=== PATIENT | male | born 1960 | race Caucasian/White ===

== ENCOUNTER 2023-09-27 10:13 | Emergency (ER) | payer BC, SELFPAY ==
[2023-09-27 10:16] VITALS: BP 154/73; PULSE 60; RESP 16; TEMP 36.3; O2SAT 98; BMI 26.3
--- NOTE | 2023-09-27 10:59 | EDS_ITS ---
HPI History of Present Illness Chief Complaint: Hypertension Detail of Chief Complaint: Acute on chronic hypertension. Informant: patient and spouse/S.O. Onset/Context/Timing Onset: Weeks Context: Gradual Onset Timing: Intermittent Current Severity: Mild Maximum Severity: Mild Narrative Narrative: 63-year-old male history of hypertension and prostate cancer. In the past he was on lisinopril daily. That medication was changed about a year ago to losartan. He has been in [place] emergency department twice in the last month. They gave him clonidine to use as needed for elevated blood pressure. He had extensive workup done there including CT of his brain which was basically unremarkable. I reviewed his labs on his phone. His BUN and creatinine are normal of around 11 and 1. Patient states he does get anxious and has been watching a lot of news recently. When his blood pressure goes up and he gets a headache he starts worrying about it and his pressure goes higher. agrees and she is present in the room. Prior similar symptoms: Yes Recent Illness/Hospitalization: No ROS ROS ED ROS Narrative Denies recent illness other than headaches. Review of Systems ROS Unobtainable: Denies due to encephalopathy Constitutional Constitutional ED: Denies chills or fever(s) Eyes Eyes: Denies blurry vision ENT ENT ED: Denies ear pain Cardiovascular Cardiovascular: Denies chest pain Respiratory/Chest Respiratory/Chest: Denies cough or dyspnea Gastrointestinal Gastrointestinal: Denies abdominal pain Genitourinary Genitourinary ED: Denies dysuria or hematuria Musculoskeletal Musculoskeletal: Denies arthralgias or back pain Integumentary Denies abscess Neurologic Neurologic: Reports headache(s) Psychiatric Psychiatric: Reports anxiety; Denies depression Endocrine Endocrinology: Denies cold intolerance Hematologic/Lymphatic Hematologic/Lymphatic: Reports none Allergic/Immunologic Allergic/Immunologic ED: Denies mouth swelling, tongue swelling or urticaria EXAM Physical Exam Narrative Exam Narrative: Well-appearing 63-year-old male. Vital signs stable afebrile. Initial blood pressure 154/73. H EENT exam unremarkable. Pupils round reactive light. Extra motions are intact. Neck nontender. No meningismus. Lungs clear to auscultation bilaterally. Heart regular rhythm no murmur. Abdomen soft nontender. Moving all 4 extremities. 5 out of 5 specification manager strength. Dorsi and plantarflexion intact. Neurologically is awake and alert with no focal motor deficits. Exam benign. Lengthy discussion with both patient and his . Const Vital Signs: 09/27/23 10:16 Temperature 97.4 F L Temperature Source Temporal Pulse Rate 60 Respiratory Rate 16 Blood Pressure 154/73 H Blood Pressure Mean 100 Pulse Ox 98 Oxygen Delivery Method Room Air Positive well nourished and well developed; Negative for cachectic, contractures or unkempt General Appearance ED: well developed and NAD; Negative for unkempt, cachectic, contractures, cyanotic, diaphoretic or pallor Nutritional Appearance: Negative for cachectic HEENT Reports moist mucous membranes Negative for trauma or tenderness Eyes PERRL and EOMs intact bilaterally General Eye ED: Negative for pale conjunctiva, scleral icterus or other Neck no lymphadenopathy, supple and no JVD General: Negative for tenderness or other Chest Wall inspection of chest normal and palpation of chest normal Chest: Negative for other Resp normal respiratory effort and clear to auscultation bilaterally Effort and Inspection: Negative for retractions Auscultation: Negative for rales, rhonchi or wheezes Cardio regular rate, regular rhythm, S1 normal heart sound, S2 normal heart sound and no murmurs Palpation: Negative for palpable S3 or palpable S4 Rate: Negative for bradycardia or tachycardic Rhythm: Negative for abnormal rhythm GI normal to inspection, nondistended, normoactive bowel sounds, non-tender, non- distended and no masses Inspection: Negative for abdominal distention Auscultation: normoactive bowel sounds Palpation: soft; Negative for tender or guarding Back/Spine no CVA tenderness General Back: Negative for CVA tenderness Cervical Spine: Negative for cervical spine tenderness Thoracic Spine / Upper Back: Negative for thoracic spinal tenderness or paraspinal muscle tenderness Lumbar Spine / Lower Back: Negative for lumbar spinal tenderness Extremity normal to inspection General Extremety ED: Negative for edema or tenderness General Extremity: Negative for edema Neuro oriented x3 and CN's II-XII intact bilaterally Sensorium / Orientation: alert; Negative for orientation impaired, lethargic or stuporous Motor Exam: strength 5/5 throughout; Negative for general weakness or strength abnormal Psych mental status grossly normal Appearance: Negative for unkempt Attitude: No agitated Mood & Affect: anxious; Negative for depressed or tearful Skin no rashes or lesions noted, no wounds and skin turgor normal General Skin Exam: elasticity normal; Negative for jaundice or pallor Lesions: No lesion noted Rashes: No rashes noted Trauma: Negative for abrasion Wounds: Negative for wounds noted MDM MDM MDM Narrative Medical decision making narrative: 63-year-old male with acute on chronic hypertension. He was previously on lisinopril now is on losartan. [place] emergency department added as needed clonidine. His exam today is normal. His blood pressure is 154/73. I reviewed his most recent labs and CAT scan from the other facility. He does not need any further testing today. I think a good part of this is secondary to his anxiety. We talked about ways to manage that. He may choose to go back to his lisinopril which he believes was controlling his blood pressure better. He will log his blood pressures and follow-up with primary care physician. Discharge Plan Triage Chief Complaint: Hypertension ED Provider: Tj Lerner Dx/Rx/DC Orders Clinical Impression: Anxiety, Chronic hypertension Instructions: ED Anxiety Reaction, ED High Blood Pressure Hypertension Primary Care Provider: NOT,DEFINED Referrals: NOT,DEFINED [Primary Care Provider] - Activity Restrictions/Additional Instructions: You may want to strongly consider going back to your prior lisinopril prescription. I would take it 1 to 2 hours prior to going to bed at night. Log your blood pressure once in the morning when you are calm and relaxed in the same in the evening. Take those numbers to either your current primary care physician or the new physician you can start with in October so they can adjust or deal with your blood pressure medication according to the numbers. If you restart the lisinopril stop your current blood pressure medication the losartan. I reviewed your recent labs from [place] is look good. For the anxiety component consider things such as walking, exercise, reading or meditation to help you with the anxiety which also help control your blood pressure better. Disposition Disposition: Home, Self Care
[2023-09-27 11:04] VITALS: BP 148/77; PULSE 82; RESP 16; O2SAT 98
--- OUTSIDE RECORDS SUMMARY | 2023-09-27 11:12 | XMS RPT_ITS | CCD ---
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 Work Phone: [facility] 11-28-2022 11:20-0400 Body mass index (BMI) [Ratio] 26.82 kg/m2 Kari Hartmann MD Work Phone: [facility] 11-28-2022 11:20-0400 Body temperature 98.1 [degF] Kari Hartmann MD Work Phone: [facility] 11-28-2022 11:20-0400 Body weight 82.37 kg Kari Hartmann MD Work Phone: [facility] 11-28-2022 11:20-0400 Diastolic blood pressure 91 mm[Hg] Kari Hartmann MD Work Phone: [facility] 11-28-2022 11:20-0400 Heart rate 60 /min Kari Hartmann MD Work Phone: [facility] 03-30-2023 11:20-0400 SaO2% (BldA) [Mass fraction] 95 % Kari Hartmann MD Work Phone: [facility] 11-28-2022 11:20-0400 Systolic blood pressure 138 mm[Hg] Kari Hartmann MD Work Phone: [facility] 09-05-2022 10:44-0500 Body height 175.3 cm Chilango Morales Jr., MD Work Phone: [facility] 09-05-2022 10:44-0500 Body mass index (BMI) [Ratio] 27.42 kg/m2 Chilango Morales Jr., MD Work Phone: [facility] 09-05-2022 10:44-0500 Body temperature 97.9 [degF] Chilango Morales Jr., MD Work Phone: [facility] 09-05-2022 10:44-0500 Body weight 84.23 kg Chilango Morales Jr., MD Work Phone: [facility] 09-05-2022 10:44-0500 Diastolic blood pressure 93 mm[Hg] Chilango Morales Jr., MD Work Phone: [facility] 09-05-2022 10:44-0500 Heart rate 80 /min Chilango Morales Jr., MD Work Phone: [facility] 09-05-2022 10:44-0500 SaO2% (BldA) [Mass fraction] 95 % Chilango Morales Jr., MD Work Phone: [facility] 09-05-2022 10:44-0500 Systolic blood pressure 154 mm[Hg] Chilango Morales Jr., MD Work Phone: [facility] 07-05-2022 10:48-0400 Diastolic blood pressure 105 mm[Hg] Gume Watts MD Work Phone: [facility] 07-05-2022 10:48-0400 Systolic blood pressure 185 mm[Hg] Gume Watts MD Work Phone: [facility] 07-05-2022 10:46-0400 Body height 175.3 cm Gume Watts MD Work Phone: [facility] 07-05-2022 10:46-0400 Body mass index (BMI) [Ratio] 27.17 kg/m2 Gume Watts MD Work Phone: [facility] 07-05-2022 10:46-0400 Body weight 83.46 kg Gume Watts MD Work Phone: [facility] 07-05-2022 10:46-0400 Heart rate 71 /min Gume Watts MD Work Phone: [facility] 06-06-2022 11:28-0400 Body height 175.3 cm Kari Hartmann MD Work Phone: [facility] 06-06-2022 11:28-0400 Body mass index (BMI) [Ratio] 26.46 kg/m2 Kari Hartmann MD Work Phone: [facility] 06-06-2022 11:28-0400 Body temperature 97.81 [degF] Kari Hartmann MD Work Phone: [facility] 06-06-2022 11:28-0400 Body weight 81.28 kg Kari Hartmann MD Work Phone: [facility] 06-06-2022 11:28-0400 Diastolic blood pressure 84 mm[Hg] Kari Hartmann MD Work Phone: [facility] 06-06-2022 11:28-0400 Heart rate 77 /min Kari Hartmann MD Work Phone: [facility] 06-06-2022 11:28-0400 SaO2% (BldA) [Mass fraction] 95 % Kari Hartmann MD Work Phone: [facility] 06-06-2022 11:28-0400 Systolic blood pressure 161 mm[Hg] Kari Hartmann MD Work Phone: [facility] 2022 14:05-0400 Diastolic blood pressure 96 mm[Hg] Gume Watts MD Work Phone: [facility] 2022 14:05-0400 Systolic blood pressure 182 mm[Hg] Gume Watts MD Work Phone: [facility] 2022 14:01-0400 Body height 165.1 cm Gume Watts MD Work Phone: [facility] 2022 14:01-0400 Body mass index (BMI) [Ratio] 28.79 kg/m2 Gume Watts MD Work Phone: [facility] 2022 14:01-0400 Body weight 78.47 kg Gume Watts MD Work Phone: [facility] 2022 14:01-0400 Heart rate 78 /min Gume Watts MD Work Phone: [facility] 12-24-2021 10:32-0400 Body height 165.1 cm Kari Hartmann MD Work Phone: [facility] 12-24-2021 10:32-0400 Body mass index (BMI) [Ratio] 28.54 kg/m2 Kari Hartmann MD Work Phone: [facility] 12-24-2021 10:32-0400 Body temperature 98.29 [degF] Kari Hartmann MD Work Phone: [facility] 12-24-2021 10:32-0400 Body weight 77.79 kg Kari Hartmann MD Work Phone: [facility] 12-24-2021 10:32-0400 Diastolic blood pressure 97 mm[Hg] Kari Hartmann MD Work Phone: [facility] 12-24-2021 10:32-0400 Heart rate 67 /min Kari Hartmann MD Work Phone: [facility] 12-24-2021 10:32-0400 SaO2% (BldA) [Mass fraction] 96 % Kari Hartmann MD Work Phone: [facility] 12-24-2021 10:32-0400 Systolic blood pressure 177 mm[Hg] Kari Hartmann MD Work Phone: [facility] 11-22-2021 09:46-0400 Body height 170.18 cm Caren Reyes Work Phone: WB-Qsisuru-Dpyfoxm Work Phone: 11-22-2021 09:46-0400 Body mass index (BMI) [Ratio] 27.12 kg/m2 Caren Reyes Work Phone: XH-Xtgmqob-Knjlmcs Work Phone: 11-22-2021 09:46-0400 Body surface area Derived from formula 1.9 m2 Caren Reyes Work Phone: GX-Uzcggdn-Mlzezjp Work Phone: 11-22-2021 09:46-0400 Body weight 78.53 kg Caren Reyes Work Phone: FN-Fxzqmwp-Iesqetm Work Phone: 11-22-2021 09:46-0400 Diastolic blood pressure 100 mm[Hg] Caren Reyes Work Phone: HP-Oucmvfp-Cdzsnzs Work Phone: 11-22-2021 09:46-0400 Heart rate 72 /min Caren Reyes Work Phone: PR-Wcddiwl-Hjcktuw Work Phone: 11-22-2021 09:46-0400 Systolic blood pressure 176 mm[Hg] Caren Reyes Work Phone: JP-Onvemvm-Rtzbmhp Work Phone: 11-15-2021 08:36-0400 Diastolic blood pressure 86 mm[Hg] Foster Michelle MD Work Phone: [facility] 11-15-2021 08:36-0400 Heart rate 89 /min Foster Michelle MD Work Phone: [facility] 11-15-2021 08:36-0400 SaO2% (BldA) [Mass fraction] 96 % Foster Michelle MD Work Phone: [facility] 11-15-2021 08:36-0400 Systolic blood pressure 148 mm[Hg] Foster Michelle MD Work Phone: [facility] 10-25-2021 14:31-0500 Body height 171 cm Caren Reyes Work Phone: WE-Kssfgat-Zkhbrro Work Phone: 10-25-2021 14:31-0500 Body mass index (BMI) [Ratio] 26.69 kg/m2 Caren Reyes Work Phone: KV-Mmnbwvl-Axodbwk Work Phone: 10-25-2021 14:31-0500 Body surface area Derived from formula 1.9 m2 Caren Reyes Work Phone: LX-Gaysavv-Msddxmd Work Phone: 10-25-2021 14:31-0500 Body weight 78.04 kg Caren Reyes Work Phone: IH-Lklzajp-Xjmyjnt Work Phone: 10-25-2021 14:31-0500 Diastolic blood pressure 87 mm[Hg] Caren Reyes Work Phone: IY-Lrrjses-Dtkrzlk Work Phone: 10-25-2021 14:31-0500 Heart rate 68 /min Caren Reyes Work Phone: QK-Phiovcp-Lkzdhuf Work Phone: 10-25-2021 14:31-0500 Systolic blood pressure 181 mm[Hg] Caren Abrams BiancaMedghazala Work Phone: LG-Xjvhgvl-Mdsrgeo Work Phone: 10-02-2021 08:49-0500 Body mass index (BMI) [Ratio] 25.4 kg/m2 Kimi Brar MD Work Phone: [facility] 10-02-2021 08:49-0500 Body weight 78.02 kg Kimi Brar MD Work Phone: [facility] 10-02-2021 08:49-0500 Diastolic blood pressure 85 mm[Hg] Kimi Brar MD Work Phone: [facility] 10-02-2021 08:49-0500 Heart rate 76 /min Kimi Brar MD Work Phone: [facility] 10-02-2021 08:49-0500 Systolic blood pressure 147 mm[Hg] Kimi Brar MD Work Phone: [facility] 12-20-2020 12:11-0400 Diastolic blood pressure 75 mm[Hg] Sameera Coreas MD Work Phone: [facility] 12-20-2020 12:11-0400 Heart rate 68 /min Sameera Coreas MD Work Phone: [facility] 12-20-2020 12:11-0400 SaO2% (BldA) [Mass fraction] 94 % Sameera Coreas MD Work Phone: [facility] 12-20-2020 12:11-0400 Systolic blood pressure 168 mm[Hg] Sameera Coreas MD Work Phone: [facility] 12-20-2020 11:50-0400 Respiratory rate 16 /min Sameera Coreas MD Work Phone: [facility] 12-20-2020 11:30-0400 Body temperature 98.29 [degF] Sameera Coreas MD Work Phone: [facility] 12-20-2020 07:30-0400 Body height 175.3 cm Sameera Coreas MD Work Phone: [facility] 12-20-2020 07:30-0400 Body mass index (BMI) [Ratio] 24.19 kg/m2 Sameera Coreas MD Work Phone: [facility] 12-20-2020 07:30-0400 Body weight 74.3 kg Sameera Coreas MD Work Phone: [facility] 12-14-2020 08:26-0400 BMI (Body Mass Index) 24.37 kg/m2 Sameera Coreas [facility] 12-14-2020 08:26-0400 Body weight 74.84 kg Sameera Coreas [facility] 12-14-2020 08:26-0400 BP Diastolic 91 mm[Hg] Sameera Coreas [facility] 12-14-2020 08:26-0400 BP Systolic 152 mm[Hg] Sameera Coreas [facility] 12-14-2020 08:26-0400 Height 175.3 cm Sameera Coreas [facility] 12-14-2020 08:26-0400 Pulse (Heart Rate) 67 /min Sameera Coreas [facility] 11-09-2020 10:11-0500 BMI (Body Mass Index) 25.1 kg/m2 freddie Rangel [facility] 11-09-2020 10:11-0500 Body Temperature 98.1 [degF] Painter Juan Carlos [facility] 11-09-2020 10:11-0500 Body weight 77.11 kg [facility] 11-09-2020 10:11-0500 BP Diastolic 71 mm[Hg] Painter Juan Carlos [facility] 11-09-2020 10:11-0500 BP Systolic 173 mm[Hg] [facility] 11-09-2020 10:11-0500 Height 175.3 cm [facility] 11-09-2020 10:11-0500 Pulse (Heart Rate) 72 /min [facility] 11-09-2020 10:11-0500 Pulse Oximetry 98 % [facility] 11-09-2020 10:11-0500 Respiratory Rate 16 /min [facility] 10-04-2020 09:57-0500 BMI (Body Mass Index) 25.85 kg/m2 Jess Milner [facility] 10-04-2020 09:57-0500 Body weight 77.11 kg Jess Alf [facility] 10-04-2020 09:57-0500 BP Diastolic 88 mm[Hg] Jess Alf [facility] 10-04-2020 09:57-0500 BP Systolic 164 mm[Hg] Jess Alf [facility] 10-04-2020 09:57-0500 Height 172.7 cm Jess Alf [facility] 10-04-2020 09:57-0500 Pulse (Heart Rate) 66 /min Jessjason Milner [facility] 04-27-2020 07:32-0400 BMI (Body Mass Index) 22.89 kg/m2 Sameera Coreas [facility] 04-27-2020 07:32-0400 Body weight 70.31 kg Sameera Coreas [facility] 04-27-2020 07:32-0400 Height 175.3 cm Sameera Coreas [facility] 10-22-2019 16:19-0500 Body mass index (BMI) [Ratio] Sameera Coreas [facility] 10-22-2019 16:19-0500 Body mass index (BMI) [Ratio] Sameera Coreas [facility] 10-22-2019 15:33-0500 Body Temperature 97.81 [degF] Sameera Coreas [facility] 10-22-2019 15:33-0500 BP Diastolic 83 mm[Hg] Sameera Coreas [facility] 10-22-2019 15:33-0500 BP Systolic 151 mm[Hg] [facility] 10-22-2019 15:33-0500 Pulse Oximetry 95 % Sameera Coreas [facility] 10-22-2019 15:33-0500 Respiratory Rate 16 /min Sameera Pop [facility] 10-22-2019 15:01-0500 Pulse (Heart Rate) 59 /min Sameera Coreas [facility] 10-22-2019 08:58-0500 BMI (Body Mass Index) 23.57 kg/m2 Sameera Coreas [facility] 10-22-2019 08:58-0500 Body weight 72.4 kg Sameera Coreas [facility] 10-22-2019 08:58-0500 Height 175.3 cm Sameera Coreas [facility] 09-14-2019 09:21-0500 BMI (Body Mass Index) 23.33 kg/m2 [facility] 09-14-2019 09:21-0500 Body weight 71.67 kg [facility] 09-14-2019 09:21-0500 Height 175.3 cm [facility] 01-15-2019 05:20-0400 BMI (Body Mass Index) 23.63 kg/m2 [facility] 01-15-2019 05:20-0400 Body Temperature 98.1 [degF] [facility] 01-15-2019 05:20-0400 BP Diastolic 73 mm[Hg] [facility] 01-15-2019 05:20-0400 BP Systolic 141 mm[Hg] [facility] 01-15-2019 05:20-0400 Height 175.3 cm [facility] 01-15-2019 05:20-0400 Pulse (Heart Rate) 66 /min [facility] 01-15-2019 05:20-0400 Pulse Oximetry 96 % [facility] 01-15-2019 05:20-0400 Respiratory Rate 18 /min [facility] 01-15-2019 05:20-0400 Weight 72.58 kg [facility] 01-12-2018 11:20-0400 BMI (Body Mass Index) 22.15 kg/m2 [facility] 01-12-2018 11:20-0400 Body Temperature 97.9 [degF] [facility] 01-12-2018 11:20-0400 BP Diastolic 80 mm[Hg] [facility] 01-12-2018 11:20-0400 BP Systolic 147 mm[Hg] [facility] 01-12-2018 11:20-0400 Height 175.3 cm [facility] 01-12-2018 11:20-0400 Pulse (Heart Rate) 75 /min [facility] 01-12-2018 11:20-0400 Respiratory Rate 16 /min [facility] 01-12-2018 11:20-0400 Weight 68.04 kg [facility] 11-03-2017 08:57-0500 BMI (Body Mass Index) 22.15 kg/m2 [facility] 11-03-2017 08:57-0500 Body Temperature 97.5 [degF] [facility] 11-03-2017 08:57-0500 BP Diastolic 92 mm[Hg] [facility] 11-03-2017 08:57-0500 BP Systolic 128 mm[Hg] [facility] 11-03-2017 08:57-0500 Height 175.3 cm [facility] 11-03-2017 08:57-0500 Pulse (Heart Rate) 74 /min [facility] 11-03-2017 08:57-0500 Weight 68.04 kg [facility] Encounters Encounter Date Encounter Type Care Provider Facility Start: 09-25-2023 End: 09-25-2023 Emergency department patient visit JYOTHI KIRAN [facility] Start: 09-22-2023 End: 09-22-2023 Emergency department patient visit CAREN REYES [facility] Start: 09-22-2023 End: 09-[facility] Start: 09-22-2023 End: 09-22-2023 Office outpatient new 45 minutes Abram Hernandez DO Work Phone: [facility] [place] Procedures Date Procedure Procedure Detail Performing Clinician Start: 09-05-2023 Comprehensive metabo lic panel Tayler Toledo MD Work Phone: Start: 06-18-2023 Radex spine lumbosac ral minimum 4 views Laury Bennett PAC Work Phone: Start: 06-13-2023 Assay of testosterone total Joni Mercado MD Work Phone: Start: 07-05-2022 Ecg routine ecg w/le ast 12 lds w/i&r Gume Watts MD Work Phone: Start: 2022 Assay of thyroid stimulating hormone tsh Gume Watts MD Work Phone: Start: 11-15-2021 Urnls dip stick/tabl et rgnt auto w/o microscopy Foster Michelle MD Work Phone: Start: 11-09-2020 Procedure on wound [address] Lexa Rangel Work Phone: Start: 10-22-2019 Radex clavicle complete Sameera Coreas Work Phone: Start: 09-27-2019 Mri any jt lower ext rem w/o contrast matrl Monique Triplett Work Phone: Start: 03-17-2019 Adult depression scr eening assessment Monique Triplett Start: 01-15-2019 Radex shoulder compl ete minimum 2 views Leeanna Wadsworth Work Phone: Colonoscopy Caren Reyes Work Phone: Operative procedure on knee Caren Reyes Work Phone: Procedure on back Caren Horta Work Phone: Prostatectomy Caren Reyes Work Phone: Repair of shoulder Caren solis Work Phone: Plan of Treatment Date Care Activity Detail Author Start: 11-09-2030 Tetanus vaccination [facility] Start: 09-05-2025 Prostate specific antigen measurement PSA Level [facility] Start: 06-06-2025 Prostate specific antigen measurement PSA Level [facility] Start: 02-10-2025 Prostate specific antigen measurement PSA Level [facility] Start: 11-18-2024 Prostate specific antigen measurement PSA Level [facility] Start: 08-29-2024 Prostate specific antigen measurement PSA Level [facility] Start: 06-03-2024 Prostate specific antigen measurement PSA Level [facility] Start: 02-22-2024 Prostate specific antigen measurement PSA Level [facility] Start: 02-20-2024 End: 02-20-2024 Patient encounter procedure 02/20/2024 8:00 AM EDT Infusion/Injection [facility]fusion [address] [phone] Joni Mercado MD [address] [facility] [address] [place] [phone] [facility] Infusion [facility] Start: 01-17-2024 History and physical examination, annual for health maintenance Wellness Visit [facility] Start: 12-25-2023 Prostate specific antigen measurement PSA Level [facility] Start: 12-08-2023 End: 12-08-2023 Patient encounter procedure 12/08/2023 1:00 PM EDT Office Visit [facility] [address] [place] [id number] Tayler Toledo MD [address] [place] [id number] [facility] Start: 12-03-2023 End: 12-03-2023 Patient encounter procedure 12/03/2023 10:15 AM EDT Office Visit [facility] [address] [place] [address] [place] [phone] Adly, Gume Dunaway MD [facility] [place] [address] [facility] Start: 12-01-2023 End: 09-03-2024 Thyrotropin [Units/volume] in Serum or Plasma TSH Lab Routine Subclinical hyperthyroidism Expected: 12/01/2023, Expires: 09/03/2024 [facility] Work Phone: Immunizations Immunization Date Immunization Notes Care Provider Fa [facility] 06-25-2023 INFLUENZA IIV4 FLUAD [id number] Gume Watts MD Work Phone: [facility] 05-27-2022 influenza, injectabl e, quadrivalent, preservative free Sadie Ballesteros RN [facility] 05-27-2022 influenza virus vaccine, unspecified formulation Daljit Bloom MD Work Phone: [facility] 07-31-2021 Influenza, injectabl e, Madin Nevaeh Canine Kidney, preservative free, quadrivalent Genet Castañeda [facility] Work Phone: [facility] 07-31-2021 Pfizer SARS-CoV-2 Vaccination Genet Garry [facility] Work Phone: [facility] 07-31-2021 flu vac qs 2020,6 ms up,CD,PF, (FLUCELVAX QUAD) syringe Genet Garry [facility] Work Phone: [facility] Work Phone: 11-29-2020 Pfizer SARS-CoV-2 Vaccination Concepción Montes [facility] 11-09-2020 tetanus toxoid, reduced diphtheria toxoid, and acellular pertussis vaccine, adsorbed Jesu Rangel [facility] 11-09-2020 diphtheria, tetanus toxoids and acellular pertussis vaccine, unspecified formulation Jesu Rangel [facility] 11-07-2020 Pfizer SARS-CoV-2 Vaccination Genet Garry [facility] Work Phone: 05-23-2020 influenza, injectabl e, quadrivalent, preservative free Jess Milner [facility] Payers Date Payer Category Payer Unknown 2015 Medicare [id number] 2015 Medicare MITESH ARLYN Newman EDADELINEROSALES MITESH KENIA ACCESS/ENHANCED/CORE PPO/RPPO [id number] 2015-Present [id number] 2015 Medicare [id number] 2015 Medicare [id number] 1958 Unknown [id number] 2.16.840.1.341000.3.579.2.9 00 1958 Unknown [id number] 2.840.1.972670.3.579.2.9 00 1958 Unknown [id number] 2.840.1.368506.3.579.2.1 069 1958 Unknown [id number] 2.16.840.1.897128.3.579.2.9 03 1958 Unknown [id number] 2.840.1.662209.3.579.2.9 03 1958 Unknown [id number] 2.840.1.686591.3.579.2.5 94 1958 Unknown [id number] 2.16.840.1.652351.3.579.2.5 94 1958 Unknown [id number] 2.16.840.1.476866.3.579.2.5 94 1958 Unknown [id number] 2.16.840.1.017017.3.579.2.5 94 1958 Unknown [id number] 2.16.840.1.636656.3.579.2.9 03 1958 Unknown [id number] 2.16.840.1.703620.3.579.2.9 03 1958 Unknown [id number] 2.16.840.1.126928.3.579.2.9 03 1958 Unknown [id number] 2.16.840.1.448755.3.579.2.9 03 1958 Unknown [id number] 2.16.840.1.407236.3.579.2.9 03 1958 Unknown [id number] 2.16.840.1.664756.3.579.2.9 03 1958 Unknown [id number] 2.16840.1.529276.3.579.2.9 03 1958 Unknown [id number] 2.840.1.682728.3.579.2.9 03 1958 Unknown [id number] 2.16840.1.461031.3.579.2.9 03 1958 Unknown [id number] 2.840.1.790073.3.579.2.9 03 1958 Unknown [id number] 2.16840.1.636649.3.579.2.9 03 1958 Unknown [id number] 2.840.1.548012.3.579.2.9 03 1958 Unknown [id number] 2.16840.1.901026.3.579.2.9 03 1958 Unknown [id number] 2.16.840.1.799130.3.579.2.9 03 1958 Unknown [id number] 2.16.840.1.520492.3.579.2.9 03 1958 Unknown [id number] 2.16.840.1.102735.3.579.2.9 03 1960 Unknown [id number] 2.16.840.1.668416.3.579.2.9 02 1960 Unknown [id number] 2.16.840.1.523044.3.579.2.9 02 1960 Unknown [id number] 2.16.840.1.826211.3.579.2.9 02 1960 Unknown [id number] 2.16.840.1.057173.3.579.2.9 02 1960 Unknown [id number] 2.16.840.1.312357.3.579.2.9 02 1958 Unknown [id number] 2.840.1.748014.3.579.2.9 02 1960 Unknown [id number] 2.840.1.912342.3.579.2.9 03 1960 Unknown [id number] 2.840.1.426203.3.579.2.9 03 1960 Unknown [id number] 2.840.1.859195.3.579.2.9 03 1958 Unknown [id number] 2.840.1.641742.3.579.2.9 03 1958 Unknown [id number] 2.840.1.407113.3.579.2.9 03 1958 Unknown [id number] 2.840.1.088552.3.579.2.9 03 1958 Unknown [id number] 2.840.1.191389.3.579.2.9 03 1960 Unknown [id number] 2.16840.1.062190.3.579.2.9 03 1958 Unknown [id number] 2.16840.1.132128.3.579.2.9 03 1958 Unknown [id number] 2.16840.1.503124.3.579.2.9 03 1958 Unknown [id number] 2.16.840.1.913408.3.579.2.9 03 1960 Unknown [id number] 2.16.840.1.622525.3.579.2.9 03 1958 Unknown [id number] 2.16840.1.546892.3.579.2.9 03 1958 Unknown [id number] 2.16.840.1.904367.3.579.2.9 03 1960 Unknown [id number] 2.840.1.316816.3.579.2.9 03 1958 Unknown [id number] 2.840.1.514389.3.579.2.9 03 1960 Unknown [id number] 2.840.1.548058.3.579.2.9 03 1958 Unknown [id number] 2.840.1.679418.3.579.2.9 03 1958 Unknown [id number] 2.0.1.707172.3.579.2.9 03 1958 Unknown [id number] 2.840.1.876681.3.579.2.9 03 1958 Unknown [id number] 2.840.1.169464.3.579.2.9 03 1958 Unknown [id number] 2.840.1.294020.3.579.2.9 03 1958 Unknown [id number] 2.16840.1.624914.3.579.2.9 03 1958 Unknown [id number] 2.16.840.1.299929.3.579.2.9 03 1958 Unknown [id number] 2.16840.1.563250.3.579.2.9 03 1958 Unknown [id number] 2.16.840.1.207907.3.579.2.9 03 1960 Unknown [id number] 2.16.840.1.381428.3.579.2.9 03 1960 Unknown [id number] 2.16.840.1.691421.3.579.2.9 03 1960 Unknown [id number] 2.16.840.1.104441.3.579.2.9 03 [facility] [id number] Social History Date Type Detail Facility Start: 01-12-2018 End: 09-08-2023 Tobacco smoking status NHIS Former smoker [facility] Start: 1960 Sex Assigned At Not on file [facility] Start: 09-14-2019 End: 09-22-2023 Alcohol intake Current non-drinker of alcohol (finding) [facility] Exposure to SARS-CoV -2 (event) Unable to assess [facility] Start: 11-05-2021 End: 01-21-2023 Exposure to SARS-CoV-2 (event) Not sure [facility] Start: 04-27-2020 Tobacco use and exposure Never used [facility] Start: 10-04-2020 End: 10-27-2020 Tobacco smoking status NHIS Light tobacco smoker [facility] History of tobacco use Cigar Smoker [facility] Start: 10-04-2020 End: 10-27-2020 Tobacco use and exposure Current user [facility] Start: 10-04-2020 Tobacco Comment occasional cigar [facility] Start: 11-09-2020 End: 09-08-2023 Tobacco use and exposure Former user [facility] Start: 07-31-2021 End: 01-16-2023 Alcohol intake [facility] History of tobacco use Current smoker [facility] Start: 10-02-2022 End: 01-16-2023 Tobacco use panel [facility] Adult Depression Screening Assessment 0 [facility] Start: 08-12-2018 Gender identity Identifies as male gender (finding) [facility] Start: 08-12-2018 Sexual orientation Bisexual (finding) [facility] Start: 01-24-2023 Tobacco smoking status NHIS Occasional tobacco smoker [facility] Within the last year , have you been afraid of your partner or ex-partner? No [facility] Do you belong to any clubs or organizations such as advent groups, unions, fraternal or athletic groups, or school groups? Yes [facility] Are you now , , , , never or living [facility] a [facility]? [facility] How often to you hav e a drink containing alcohol? Monthly or less [facility] How many standard dr inks containing alcohol do you have on a typical day? 1 or 2 [facility] How often do you hav e 6 or more drinks on 1 occasion? Less than monthly [facility] Do you feel stress - tense, restless, nervous, or anxious, or unable to sleep at night because your mind is troubled all the time - these days [OSQ] Not at all [facility] (I/We) worried whegiovanna er (my/our) food would run out before (I/we) got money to buy more. Never true [facility] Start: 2023 Sexual orientation Heterosexual (finding) [facility] Start: 08-31-2011 Tobacco smoking status [facility] Tobacco smoking consumption unknown [facility] Medical Equipment Procedure Code Equipment Code Equipment Origin al Text Equipment Identifier Dates Plate 70mm Lt Sh ort Dstl Third Clavicle Fracture Ss - [id number] Start: 10-22-2019 Clinical Notes 12-20-2020 to 09-22-2023 Abram Hernandez, DO - 09/22/2023 2:17 PM Jacinta Nuñez, BACKEND JAVA DEVELOPER - 09/22/2023 2:05 PM Jony Telles, PIERCING MILL OPERATOR - 09/10/2023 10:00 AM Ruthy Swift PTA - 09/08/2023 10:00 AM EST Note Date & Type Note Facility 09-22-2023 History of Present illness Narrative [facility] Interventional Pain Management Office Note Patient Name: Vazquez Musa Referring Physician: Daljit Bloom MD Date of : 1960 PCP: Caren Reyes, FISH PROCESSOR Date of Service: 09/22/23 Assessment & Plan Assessment: Thoracic radiculopathy Thoracic degenerative Thoracic spondylosis Lumbar degenerative disc disease Lumbar spondylosis Chronic pain syndrome Hypertensive emergency Chronic continuous opioid use Narrative: He presents today with chronic mid back pain secondary to combination of thoracic radiculopathy, thoracic degenerative disease and thoracic spondylosis. MRI of the thoracic spine December 2022 shows Bone marrow edema involving the T4 vertebral body and superior endplate/subendplate upper T5 vertebral body is shown with less well-defined bone marrow edema at T6, T7 and T8. Findings are suspicious for micro fractures. Unusual T1 hyperintense apparently enhancing epidural process is seen at T5-T8. It is difficult to be certain if this is secondary to epidural venous plexus or component of epidural hemorrhage. Short-term follow-up MRI examination in 1 month may be of benefit to assess for resolution. We will order a repeat MRI of his thoracic spine with and without contrast to assess for resolution of findings. On exam today his blood pressure was noted to be 211/103. He does endorse mild headaches and he does feel he has chest tightness as well. I did discuss I am very concerned he could be having coronary ischemia as well as stroke symptoms. I strongly recommend an ambulance to transport him to the ER. He is declining at this time and is driving himself to [facility] straight from this visit. He has tried and failed Tylenol, NSAIDs, gabapentin, muscle relaxers and creams/patches. He is also tried and failed tramadol and [place]. He endorses inadequate pain relief on his current regimen. Plan: Medications: Start Percocet 5 mg twice daily as needed; continue Gabapentin 800 mg TID Follow-up: Return in about 2 months (around 11/21/2023) for Follow-up. Compliance OARRS/NARxCheck: No data recorded Narcan Rx Ordered: 09/22/23 Opioid Risk Tool: If chronic opioids were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 pathology report. He then periodically followed up with Dr. Valente for urological care but recently transitioned to [facility] urology clinic due to insurance changes. His PSA was regularly followed by Caren Reyes CNP at [facility] and had always been low until about 2 months ago when his PSA was noted to increase to 2.56 on 10/02/2021 from baseline near 0.5 since the time of the surgery. Per recommendations of Dr. Valente patient underwent PSMA scan which did not show any evidence of recurrent disease. Per his discussion with Dr. Valente on 11/22/2021, he elected to observe the PSA trend and was due to recheck the PSA in 4 months. Today, patient reports feeling fairly well, denies any new changes or any new symptoms since his last visit in urology clinic. He chronically has LUTS and hot flashes but these have been manageable for a many years and years and he is not bothered by the symptoms. Patient denies any new pain or discomfort at today's visit. Oncology History Prostate cancer (HCC) 08/30/2011 Initial Diagnosis Prostate cancer (HCC) 08/30/2011 Surgery [facility] Final Pathologic Diagnosis A. Anterior prostate fat, biopsy: - Fibroadipose tissue, negative for neoplasia B. Prostate and seminal vesicles, robotic prostatectomy: - Prostatic adenocarcinoma, Naiam score 3+4=7 SYNOPTIC REPORT FOR CARCINOMA OF THE PROSTATE: Histologic type: ACINAR Naima score: 3+4=7 % of gland involved by tumor: 12 Tumor extent (n=no, y=yes, na=not applicable): Laterality (r=right, l=left, b=bilateral): B Extraprostatic extension (f=focal, m=multifocal): N (SEE COMMENT) Location of extraprostatic extension: NA Microscopic invasion of bladder neck: N Seminal vesicle muscle wall invasion: N Invasion of rectum, levator muscles or pelvic wall: NA Margins (n=negative, p=positive, na=not applicable): Immaculata: N Bladder neck: N Other margins: P Distance of tumor to closest margin (cm): NA Location of positive margin: RIGHT ANTERIOR, RIGHT ANTERIOLATERAL Length of longest positive margin (cm): 0.05 Regional lymph nodes (na=not applicable): Number examined: 0 Number positive: NA Number negative: NA 11/06/2021 Imaging EXAM: PET SCAN IMPRESSION: No evidence for F-18 PSMA expressing recurrent disease Other PSA Labs 11/18/22 - 3.49 08/29/22 - 3.87 06/03/22 - 3.34 02/21/22 - 2.77 12/24/21 - 3.00 Past Medical History: Diagnosis Date Cancer (HCC) prostate 2011 Disease of thyroid gland hyper Fractures Hypertension om medication Psychiatric disorder PTSD Past Surgical History: Procedure Laterality Date CARPAL TUNNEL RELEASE OPEN Left 12/20/2020 Procedure: RELEASE CARPAL TUNNEL; Surgeon: Sameera Coreas MD; Location: [facility] OR; Service: Orthopedic CATARACT EXTRACTION, BILATERAL 2011 cervical Bilateral [address] Monica Mancilla HARDWARE REMOVAL SHOULDER Left 12/20/2020 Procedure: HARDWARE REMOVAL LEFT SHOULDER; Surgeon: Sameera Coreas MD; Location: [facility] OR; Service: Orthopedic KIDNEY SURGERY Right 1969 valve duct problems when younger KNEE CARTILAGE SURGERY Left 2017 MANDIBLE SURGERY 2013 had dental work done dr malina stahl jaw ORIF CLAVICLE Left 10/22/2019 Procedure: OPEN REDUCTION INTERNAL FIXATION LEFT CLAVICLE; Surgeon: Sameera Coreas MD; Location: [facility] OR; Service: Orthopedic PROSTATECTOMY 2011 had cancer RELEASE CUBITAL TUNNEL Left 12/20/2020 Procedure: LEFT CUBITAL TUNNEL; Surgeon: Sameera Coreas MD; Location: [facility] OR; Service: Orthopedic SHOULDER SURGERY Right 2011 right shoulder replacement Family History Adopted: Yes Social History Socioeconomic History Marital status: Tobacco Use Smoking status: Former Types: Cigars Smokeless tobacco: Former Vaping Use Vaping status: Never Used Substance and Sexual Activity Alcohol use: No Alcohol/week: 0.0 standard drinks of alcohol Drug use: No Allergies Allergen Reactions Amlodipine Other (See Comments) Patient state it make him unbalanced and dizzy Current Outpatient Medications Medication Sig Dispense Refill albuterol 90 mcg/actuation inhaler Inhale 2 (two) puffs every 6 (six) hours as needed for wheezing or shortness of breath for wheezing . 18 g 1 azithromycin (ZITHROMAX) 500 MG tablet Take 1 (one) tablet (500 mg total) by mouth daily . 6 tablet 0 budesonide-formoteroL (Symbicort) 160-4.5 mcg/actuation inhaler Inhale 2 (two) puffs 2 (two) times a day . 1 each 12 fluticasone propionate (FLONASE) 50 mcg/actuation nasal spray 2 (two) sprays by Each Nare route daily . 48 mL 0 gabapentin (NEURONTIN) 800 MG tablet TAKE 1 TABLET BY MOUTH THREE TIMES A DAY . 270 tablet 0 ibuprofen (ADVIL,MOTRIN) 800 MG tablet Take 1 (one) tablet (800 mg total) by mouth every 6 (six) hours as needed for pain . 30 tablet 0 lisinopriL-hydrochlorothiazide (PRINZIDE,ZESTORETIC) 20-12.5 mg per tablet Take 1 (one) tablet by mouth 2 (two) times a day . 180 tablet 0 loteprednol etabonate (Eysuvis) 0.25 % DrpS 1 drop 4 (four) times a day . methIMAzole (TAPAZOLE) 5 MG tablet Take 1 (one) tablet (5 mg total) by mouth . pramipexole (MIRAPEX) 1 MG tablet Take 1 (one) tablet (1 mg total) by mouth nightly . 30 tablet 2 tolterodine (DETROL LA) 4 MG 24 hr capsule Take 1 (one) capsule (4 mg total) by mouth daily . 30 capsule 3 blood pressure test kit-large Kit 1 kit by Miscellaneous route daily . 1 each 0 guaiFENesin (MUCINEX) 600 mg 12 hr tablet Take 1 (one) tablet (600 mg total) by mouth every 12 (twelve) hours . (Patient not taking: Reported on 11/28/2022 .) 14 tablet 0 No current facility-administered medications for this visit. Review of Systems: A Complete review of systems was performed and is negative except for what is listed in the HPI Physical Exam: PACU Vitals 11/28/22 1120 BP: (!) 138/91 Pulse: 60 Temp: 98.1 F (36.7 C) SpO2: 95% ECOG 0 Gen: NAD, resting comfortably HEENT: NCAT, no temporal wasting, anicteric sclerae, mmm, no op lesions Neck: supple, no thyromegaly or LAD Lymphatics: no cervical, axillary, or inguinal adenopathy Chest: CTAB, no w/r/r, no respiratory distress CV: RRR, no m/r/g, normal S1, S2 Abd: soft, nontender, nondistended, +BS, no hepatosplenomegaly Ext: wwp, no c/c/e Skin: no rashes or lesions, multiple tattoos b/l upper extremities Neuro: Alert and oriented x4, no focal deficits, moves all four extremities Psych: Mood normal, affect normal. Labs: Lab Results Component Value Date WBC 5.55 11/18/2022 HGB 16.3 11/18/2022 HCT 49.2 11/18/2022 MCV 93.7 11/18/2022 PLT 208 11/18/2022 RBC 5.25 11/18/2022 Lab Results Component Value Date GLUCOSE 123 (H) 11/18/2022 CALCIUM 9.6 11/18/2022 NA 141 11/18/2022 K 4.5 11/18/2022 CL 110 (H) 11/18/2022 BUN 13 11/18/2022 CREATININE 0.99 11/18/2022 Lab Results Component Value Date ALT 46 02/21/2022 AST 31 02/21/2022 ALKPHOS 138 02/21/2022 BILITOT 0.4 02/21/2022 Assessment & Recommendations: Vazquez Musa is a 62 y.o. male with a past medical history of HTN, Hyperthyroidism, PTSD who is being seen by hematology/oncology for recurrent prostate cancer. 1. 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 -After the initial evaluation I had extensive discussion with the patient reviewing available imaging results and lab result and overall nature and clinical course of biochemical recurrence of prostate cancer. -Patient underwent PET/PSMA in October 2021 which did not show any evidence of metastatic prostate cancer Latest Reference Range & Units 06/03/22 11:57 08/29/22 10:04 11/18/22 09:18 PSA 0.00 - 0.99 ng/mL 3.34 (H) 3.87 (H) 3.49 (H) -We discussed at length the options that are available to him in terms of the next steps. We can consider initiation of androgen deprivation therapy versus close observation. Since there is no tangible disease present on most recent imaging studies and patient denies any new pain or discomfort, patient elected to observe his PSA trend closely -We attempted to obtain a repeat CT scan to assess for any progression of systemic disease but this was denied by his insurance. There is currently no significant focal needs since his PSA is stable. -I recommend repeating the PSA in 3 months to continue close observation. If there are any new symptoms or significant elevation in PSA, we will then pursue further imaging with CT scans and nuclear medicine bone scan. -He will need to continue to follow-up in urology clinic for other symptoms RTC in 3 months with repeat labs prior to his visit. Education Provided Education/Instructions given to: (x) Patient (_) Spouse (_) Parent (_) Other Barriers to Learning: (x) None (_) Yes (identify):_ Content: (x) Refer to note above (_)Other (identify):_ Evaluation/Outcome: (x) Verbalized understanding (_) Demonstrated understanding (_) Other:_ Kari Hartmann MD documented in this encounter [facility] 09-05-2022 Note Addended by: BARBARA MCMULLEN on: 09/05/2022 12:02 PM Modules accepted: Orders [facility] 09-05-2022 Note Addended by: BARBARA MCMULLEN on: 09/05/2022 12:02 PM Modules accepted: Orders [facility] 09-05-2022 Note Addended by: BARBARA MCMULLEN on: 09/05/2022 12:02 PM Modules accepted: Orders [facility] 09-05-2022 Miscellaneous Notes Addended by: BARBARA MCMULLEN on: 09/05/2022 12:02 PM Modules accepted: Orders documented in this encounter [facility] 09-05-2022 Instructions Chilango Morales Jr., MD - 09/05/2022 11:56 AM EST Plan: OFFICE APPOINTMENT 3 MONTHS WITH CBC;BMP;PSA documented in this encounter [facility] 09-05-2022 Instructions Chilango Morales Jr., MD - 09/05/2022 11:56 AM EST Plan: MONITOR PSA CLOSELY MONITOR REVIEW OF SYSTEMS, PHYSICAL EXAM Periodic CT scans and bone scans as indicated by lab, physical exam, and review of systems Office visit in 3 months with CBC, BMP, PSA documented in this encounter [facility] 09-05-2022 History of Present illness Narrative Subjective: Patient ID: Vazquez Musa is a 62 y.o. male. HPI: Recent Results (from the past 336 hour(s)) PSA Monitor Collection Time: 08/29/22 10:04 AM Result Value Ref Range PSA 3.87 (H) 0.00 - 0.99 ng/mL Objective: BP (!) 154/93 (BP Location: Right arm) Pulse 80 Temp 97.9 F (36.6 C) (Oral) Ht 5' 9 Wt 84.2 kg (185 lb 11.2 oz) SpO2 95% BMI 27.42 kg/m Physical Exam Vitals and nursing note reviewed. Constitutional: General: He is not in acute distress. Appearance: He is well-developed. HENT: Head: Normocephalic and atraumatic. Eyes: Pupils: Pupils are equal, round, and reactive to light. Cardiovascular: Rate and Rhythm: Normal rate and regular rhythm. Heart sounds: Normal heart sounds. No murmur heard. Pulmonary: Effort: Pulmonary effort is normal. Breath sounds: Normal breath sounds. No wheezing or rales. Abdominal: General: Bowel sounds are normal. Palpations: Abdomen is soft. There is no hepatomegaly, splenomegaly or mass. Tenderness: There is no abdominal tenderness. There is no guarding. Musculoskeletal: Cervical back: Normal range of motion and neck supple. Lymphadenopathy: Cervical: No cervical adenopathy. Skin: General: Skin is warm and dry. Findings: No erythema or rash. Neurological: Mental Status: He is alert and oriented to person, place, and time. Psychiatric: Behavior: Behavior normal. Thought Content: Thought content normal. Judgment: Judgment normal. Assessment/Plan: Diagnoses and all orders for this visit: Recurrent prostate cancer (HCC) Plan: OFFICE APPOINTMENT 3 MONTHS WITH CBC;BMP;PSA documented in this encounter [facility] 09-05-2022 History of Present illness Narrative Subjective: The patient returns today in continued follow-up of recurrent prostate cancer. He has no new complaints and his review of systems was normal. As noted previously he continues to have lower urinary tract symptoms and hot flashes, but he has become accustomed to these and they do not affect his quality of life. Patient ID: Vazquez Musa is a 62 y.o. male. HPI: Recent Results (from the past 336 hour(s)) PSA Monitor Collection Time: 08/29/22 10:04 AM Result Value Ref Range PSA 3.87 (H) 0.00 - 0.99 ng/mL Other PSA Labs 10/3/22 - 3.34 02/21/22 - 2.77 12/24/21 - 3.00 10/02/21 - 2.56 10/13/17 - 0.56 Diagnosis: Recurrent prostate cancer Urologist: Dr. Michelle PCP: Caren Hicks CNP History of Present Illness: Vazquez Musa is a 62 y.o. male with a past medical history of HTN, Hyperthyroidism, PTSD who is being seen by hematology/oncology for recurrent prostate cancer. Briefly, patient was initially diagnosed with prostate cancer in 2010. He underwent RARP, bilateral nerve sparing surgery with Dr. Powell at [facility] on 08/30/11 (Jaffrey 3+4=7, pT2c Nx PSM). There was a positive margin on pathology per the final pathology report. He then periodically followed up with Dr. Valente for urological care but recently transitioned to [facility] urology clinic due to insurance changes. His PSA was regularly followed by Caren Reyes CNP at [facility] and had always been low until about 2 months ago when his PSA was noted to increase to 2.56 on 10/02/2021 from baseline near 0.5 since the time of the surgery. Per recommendations of Dr. Valente patient underwent PSMA scan which did not show any evidence of recurrent disease. Per his discussion with Dr. Valente on 11/22/2021, he elected to observe the PSA trend and was due to recheck the PSA in 4 months. Oncology History Prostate cancer (HCC) 08/30/2011 Initial Diagnosis Prostate cancer (HCC) 08/30/2011 Surgery [facility] Final Pathologic Diagnosis A. Anterior prostate fat, biopsy: - Fibroadipose tissue, negative for neoplasia B. Prostate and seminal vesicles, robotic prostatectomy: - Prostatic adenocarcinoma, Naima score 3+4=7 SYNOPTIC REPORT FOR CARCINOMA OF THE PROSTATE: Histologic type: ACINAR Jaffrey score: 3+4=7 % of gland involved by tumor: 12 Tumor extent (n=no, y=yes, na=not applicable): Laterality (r=right, l=left, b=bilateral): B Extraprostatic extension (f=focal, m=multifocal): N (SEE COMMENT) Location of extraprostatic extension: NA Microscopic invasion of bladder neck: N Seminal vesicle muscle wall invasion: N Invasion of rectum, levator muscles or pelvic wall: NA Margins (n=negative, p=positive, na=not applicable): Immaculata: N Bladder neck: N Other margins: P Distance of tumor to closest margin (cm): NA Location of positive margin: RIGHT ANTERIOR, RIGHT ANTERIOLATERAL Length of longest positive margin (cm): 0.05 Regional lymph nodes (na=not applicable): Number examined: 0 Number positive: NA Number negative: NA 11/06/2021 Imaging EXAM: PET SCAN IMPRESSION: No evidence for F-18 PSMA expressing recurrent disease Other PSA Labs 06/03/22 - 3.34 02/21/22 - 2.77 12/24/21 - 3.00 10/02/21 - 2.56 10/13/17 - 0.56 Past Medical History: Diagnosis Date Cancer (HCC) prostate 2010 Disease of thyroid gland hyper Fractures Hypertension om medication Psychiatric disorder PTSD Past Surgical History: Procedure Laterality Date CARPAL TUNNEL RELEASE OPEN Left 12/20/2020 Procedure: RELEASE CARPAL TUNNEL; Surgeon: Sameera Coreas MD; [facility]; Service: Orthopedic CATARACT EXTRACTION, BILATERAL 2011 cervical Bilateral [address] Monica Mancilla HARDWARE REMOVAL SHOULDER Left 12/20/2020 Procedure: HARDWARE REMOVAL LEFT SHOULDER; Surgeon: Smaeera Coreas MD; [facility]; Service: Orthopedic KIDNEY SURGERY Right 1969 valve duct problems when younger KNEE CARTILAGE SURGERY Left 2017 MANDIBLE SURGERY 2012 had dental work done dr malina stahl jaw ORIF CLAVICLE Left 10/22/2019 Procedure: OPEN REDUCTION INTERNAL FIXATION LEFT CLAVICLE; Surgeon: Sameera Coreas MD; [facility]; Service: Orthopedic PROSTATECTOMY 2010 had cancer RELEASE CUBITAL TUNNEL Left 12/20/2020 Procedure: LEFT CUBITAL TUNNEL; Surgeon: Sameera Coreas MD; [facility]; Service: Orthopedic SHOULDER SURGERY Right 2010 right shoulder replacement Family History Adopted: Yes Social History Socioeconomic History Marital status: Tobacco Use Smoking status: Former Types: Cigars Smokeless tobacco: Former Vaping Use Vaping Use: Never used Substance and Sexual Activity Alcohol use: No Alcohol/week: 0.0 standard drinks Drug use: No Allergies Allergen Reactions Amlodipine Other (See Comments) Patient state it make him unbalanced and dizzy Current Outpatient Medications Medication Sig Dispense Refill albuterol 90 mcg/actuation inhaler Inhale 2 (two) puffs every 6 (six) hours as needed for wheezing or shortness of breath for wheezing . 18 g 1 blood pressure test kit-large Kit 1 kit by Miscellaneous route daily . 1 each 0 budesonide-formoteroL (Symbicort) 160-4.5 mcg/actuation inhaler Inhale 2 (two) puffs 2 (two) times a day . 1 each 12 fluticasone propionate (FLONASE) 50 mcg/actuation nasal spray 2 (two) sprays by Each Nare route daily . 48 mL 0 gabapentin (NEURONTIN) 800 MG tablet TAKE 1 TABLET BY MOUTH THREE TIMES A DAY . 270 tablet 0 ibuprofen (ADVIL,MOTRIN) 800 MG tablet Take 1 (one) tablet (800 mg total) by mouth every 6 (six) hours as needed for pain . 30 tablet 0 lisinopriL (PRINIVIL,ZESTRIL) 20 MG tablet Take 1 (one) tablet (20 mg total) by mouth 2 (two) times a day . 180 tablet 0 loteprednol etabonate (Eysuvis) 0.25 % DrpS 1 drop 4 (four) times a day . methIMAzole (TAPAZOLE) 5 MG tablet Take 1 (one) tablet (5 mg total) by mouth daily . 90 tablet 1 pramipexole (MIRAPEX) 1 MG tablet Take 1 (one) tablet (1 mg total) by mouth nightly . 30 tablet 2 tolterodine (DETROL LA) 4 MG 24 hr capsule Take 1 (one) capsule (4 mg total) by mouth daily . 30 capsule 3 No current facility-administered medications for this visit. Review of Systems: A Complete review of systems was performed and is negative except for what is listed in the HPI Objective: BP (!) 154/93 (BP Location: Right arm) Pulse 80 Temp 97.9 F (36.6 C) (Oral) Ht 5' 9 Wt 84.2 kg (185 lb 11.2 oz) SpO2 95% BMI 27.42 kg/m Physical Exam Vitals and nursing note reviewed. Constitutional: General: He is not in acute distress. Appearance: Normal appearance. He is well-developed and normal weight. He is not ill-appearing, toxic-appearing or diaphoretic. HENT: Head: Normocephalic and atraumatic. Eyes: General: No scleral icterus. Extraocular Movements: Extraocular movements intact. Conjunctiva/sclera: Conjunctivae normal. Neck: Vascular: No carotid bruit. Cardiovascular: Rate and Rhythm: Normal rate and regular rhythm. Heart sounds: Normal heart sounds. No murmur heard. Pulmonary: Effort: Pulmonary effort is normal. No respiratory distress. Breath sounds: Normal breath sounds. No stridor. No wheezing, rhonchi or rales. Chest: Chest wall: No tenderness. Abdominal: General: Bowel sounds are normal. There is no distension. Palpations: Abdomen is soft. There is no hepatomegaly, splenomegaly or mass. Tenderness: There is no abdominal tenderness. There is no right CVA tenderness, left CVA tenderness, guarding or rebound. Hernia: No hernia is present. Musculoskeletal: General: No swelling, tenderness, deformity or signs of injury. Cervical back: Normal range of motion and neck supple. No rigidity or tenderness. Right lower leg: No edema. Left lower leg: No edema. Lymphadenopathy: Cervical: No cervical adenopathy. Skin: General: Skin is warm and dry. Coloration: Skin is not jaundiced or pale. Findings: No bruising, erythema, lesion or rash. Neurological: General: No focal deficit present. Mental Status: He is alert and oriented to person, place, and time. Psychiatric: Behavior: Behavior normal. Thought Content: Thought content normal. Judgment: Judgment normal. Assessment/Plan: Diagnoses and all orders for this visit: Recurrent prostate cancer (HCC) No evidence of disease on the most recent imaging studies; patient denies any new pain, discomfort, or other symptoms related to metastatic prostate cancer. Plan: MONITOR PSA CLOSELY MONITOR REVIEW OF SYSTEMS, PHYSICAL EXAM Periodic CT scans and bone scans as indicated by lab, physical exam, and review of systems Office visit in 3 months with CBC, BMP, PSA documented in this encounter [facility] 07-05-2022 Note Addended by: Blu WATTS on: 07/05/2022 11:15 AM Modules accepted: Orders [facility] 07-05-2022 Note Addended by: Blu WATTS on: 07/05/2022 11:15 AM Modules accepted: Orders [facility] 07-05-2022 Note Addended by: Blu WATTS on: 07/05/2022 11:15 AM Modules accepted: Orders [facility] 07-05-2022 Miscellaneous Notes Addended by: GUME WATTS on: 07/05/2022 11:15 AM Modules accepted: Orders documented in this encounter [facility] 07-05-2022 Instructions Gume Watts MD - 07/05/2022 11:10 AM EDT Hold methimazole and repeat thyroid labs in 6 weeks. Let me know at any time if you develop worsening/new palpitations, tremors, heat intolerance, diarrhea/going frequently for number 2, excessive anxiety, weight loss. documented in this encounter [facility] 07-05-2022 History of Present illness Narrative Images from the original note were not included. Reason for visit/chief complaint: patient has a hx of grave's disease and hyperthyroidism, compalints of increased anxiety, fatigue and has not seen an endo for years Date: 07/05/2022 Referring Provider: No ref. provider found Primary Care Provider: Caren Reyes, CHARISSA HPI: Interval hx: Wt Readings from Last 3 Encounters: 07/05/22 83.5 kg (184 lb) 06/06/22 81.3 kg (179 lb 3.2 oz) 05/27/22 80.7 kg (178 lb) 07/05/2022: MMI dose was being gradually decreased; has been on 2.5 mg every other day since early 06/2022. He gained some weight compared to last visit. No other changes that he noticed on the lower dose. He has chronic stable palpitations. Occasional tremors as before. No side effects. No bulging eyes/double vision. No neck lump or dysphagia. Occasionally he may have raspy voice. Background from the initial consult note from 2022: Mr. Musa is a 62 y.o. male with hx of HTN, PTSD, depression, recurrent prostate cancer (currently on no treatment), hyperthyroidism, neuropathy, Raynaud phenomenon, RLS. He says he had TFTs checked in 2010 as a part of checkup, which showed hyperthyroidism . He says he had anxiety, night sweats, shaking, palpitations, burning eyes, weight loss at that time. He didn't have /never told he had bulging eyes. Labs from care everywhere show low TSH of 0.1-0.2 going back to at least 2010, with normal FT4 and FT3. TSI and TBI at that time were normal. Per endocrinology note by Dr. Rema Paredes at from 10/2011, Discussed with pt slightly low TSH, with nl free T4 , unremarkable thyroid US and I 123 uptake and scan, negative thyroid antibodies , unlikely to be cause of his sx ( weight loss, hot flashes, sweats etc..). He could try methimazole and see if normalizing TSH would make any difference ., though doubt He has been taking MMI 5 mg daily since 2011. TSH has been normal since 2013 at least per chart. He says his symptoms improved after MMI was started. No vomiting or abdominal pain, but he has chronic nausea for years. No fever, but had internal throat discomfort for the last year (not like a cold sore throat). He has not seen an rim roller operator since 2012. Mr. Musa endorses fatigue, dry skin, palpitations, tremors, heat intolerance, and excessive anxiety/nervousness. No cold intolerance, constipation, hair loss, or diarrhea/hyperdefecation. He gained about 20 lb over this year. He has red/dry eyes. No bulging eyes. Occasionally, he has double vision, not at a certain direction, maybe once every 4-6 months. In regards to mechanical/obstructive symptoms, He endorses dysphagia for solids for about 10 years since he had a c-spine surgery; has been stable over time. Voice gets raspy sometimes on/off. No neck swelling, neck pain, or postural SOB. Risk factors: -Family hx of thyroid disease/cancer: he was adopted -Hx of thyroid surgery: no, never received FISHER -Hx of high risk/interfering medications: no biotin, steroids -Hx of head/neck irradiation: no -Smoking: no He recalls being off MMI for 1-2 weeks 1.5 year ago, which caused worsening anxiety. Review of Systems: as per HPI, otherwise negative Medical History: Past Medical History: Diagnosis Date Cancer (HCC) prostate 2010 Disease of thyroid gland hyper Fractures Hypertension om medication Psychiatric disorder PTSD Surgical History: Past Surgical History: Procedure Laterality Date CARPAL TUNNEL RELEASE OPEN Left 12/20/2020 Procedure: RELEASE CARPAL TUNNEL; Surgeon: Sameera Coreas MD; [facility]; Service: Orthopedic CATARACT EXTRACTION, BILATERAL 2011 cervical Bilateral [address] Monica Mancilla HARDWARE REMOVAL SHOULDER Left 12/20/2020 Procedure: HARDWARE REMOVAL LEFT SHOULDER; Surgeon: Sameera Coreas MD; [facility]; Service: Orthopedic KIDNEY SURGERY Right 1969 valve duct problems when younger KNEE CARTILAGE SURGERY Left 2017 MANDIBLE SURGERY 2012 had dental work done dr malina stahl jaw ORIF CLAVICLE Left 10/22/2019 Procedure: OPEN REDUCTION INTERNAL FIXATION LEFT CLAVICLE; Surgeon: Sameera Coreas MD; [facility]; Service: Orthopedic PROSTATECTOMY 2010 had cancer RELEASE CUBITAL TUNNEL Left 12/20/2020 Procedure: LEFT CUBITAL TUNNEL; Surgeon: Sameera Coreas MD; [facility]; Service: Orthopedic SHOULDER SURGERY Right 2010 right shoulder replacement Family History: Family History Adopted: Yes Social History: Social History Socioeconomic History Marital status: Tobacco Use Smoking status: Former Types: Cigars Smokeless tobacco: Former Vaping Use Vaping Use: Never used Substance and Sexual Activity Alcohol use: No Alcohol/week: 0.0 standard drinks Drug use: No Allergies: Allergies Allergen Reactions Amlodipine Other (See Comments) Patient state it make him unbalanced and dizzy Current Medications: Current Outpatient Medications Medication Sig Dispense Refill albuterol 90 mcg/actuation inhaler Inhale 2 (two) puffs every 6 (six) hours as needed for wheezing or shortness of breath for wheezing . 18 g 1 blood pressure test kit-large Kit 1 kit by Miscellaneous route daily . 1 each 0 budesonide-formoteroL (Symbicort) 160-4.5 mcg/actuation inhaler Inhale 2 (two) puffs 2 (two) times a day . 1 each 12 fluticasone propionate (FLONASE) 50 mcg/actuation nasal spray 2 (two) sprays by Each Nare route daily . 48 mL 0 gabapentin (NEURONTIN) 800 MG tablet TAKE 1 TABLET BY MOUTH THREE TIMES A DAY . 270 tablet 0 ibuprofen (ADVIL,MOTRIN) 800 MG tablet Take 1 (one) tablet (800 mg total) by mouth every 6 (six) hours as needed for pain . 30 tablet 0 lisinopriL (PRINIVIL,ZESTRIL) 20 MG tablet Take 1 (one) tablet (20 mg total) by mouth 2 (two) times a day . 180 tablet 0 loteprednol etabonate (Eysuvis) 0.25 % DrpS 1 drop 4 (four) times a day . methIMAzole (TAPAZOLE) 5 MG tablet Take 1 (one) tablet (5 mg total) by mouth daily . 90 tablet 1 tolterodine (DETROL LA) 4 MG 24 hr capsule Take 1 (one) capsule (4 mg total) by mouth daily . 30 capsule 3 pramipexole (MIRAPEX) 1 MG tablet Take 1 (one) tablet (1 mg total) by mouth nightly . (Patient not taking: Reported on 07/05/2022 .) 30 tablet 2 No current facility-administered medications for this visit. Physical Exam: Vitals: BP (!) 185/105 Pulse 71 Ht 5' 9 Wt 83.5 kg (184 lb) BMI 27.17 kg/m , Body mass index is 27.17 kg/m ., Wt Readings from Last 3 Encounters: 07/05/22 83.5 kg (184 lb) 06/06/22 81.3 kg (179 lb 3.2 oz) 05/27/22 80.7 kg (178 lb) General/Constitutional: , well-developed and in no distress. Eyes: no lid retraction (stare), no proptosis Neck: supple, normal range of motion. no thyromegaly present Cardiovascular: normal rate, occasionally irregular rhythm, Pulmonary/Chest: effort normal Abdominal: soft, no tenderness Musculoskeletal: nomal range of motion, normal muscle mass Neurological: alert and oriented, no focal deficits, no tremors, DTRs normal Skin: warm and moist, no rash noted Psychiatric: appropriate affect Lab/Imaging Data: Lab Results Component Value Date WBC 5.75 02/21/2022 HGB 16.2 02/21/2022 HCT 49.8 02/21/2022 MCV 93.3 02/21/2022 PLT 215 02/21/2022 Lab Results Component Value Date GLUCOSE 106 (H) 02/21/2022 NA 139 02/21/2022 K 4.0 02/21/2022 CL 105 02/21/2022 BUN 14 02/21/2022 CREATININE 0.85 02/21/2022 Lab Results Component Value Date ALT 46 02/21/2022 AST 31 02/21/2022 ALKPHOS 138 02/21/2022 BILITOT 0.4 02/21/2022 Lab Results Component Value Date TSH 1.22 07/02/2022 THYROIDAB 0.7 10/02/2021 Lab Results Component Value Date CALCIUM 8.8 02/21/2022 Lab Results Component Value Date LDLCALC 119 10/02/2021 CHOL 191 10/02/2021 HDL 56 10/02/2021 TRIG 81 10/02/2021 CHOLHDL 3.4 10/02/2021 Latest Reference Range & Units 09/29/12 08:15 12/20/13 12:54 05/18/15 08:59 09/16/16 09:46 08/12/18 14:01 09/20/19 09:14 10/02/21 09:40 TSH 0.27 - 4.20 mcIU/mL 1.44 (E) 0.72 0.70 1.64 2.00 1.82 1.11 Thyroglobulin <0.1 ng/mL 22.0 (H) Thyroglobulin Ab 0.0 - 3.9 IU/mL <0.9 Thyroid Peroxidase Ab 0.0 - 9.0 IU/mL 0.7 06/24/2011: 04/04/2022: TSH 2.29, TRAb <1.10, TSI <1. 04/12/2022: US thyroid: shows no discrete nodules but increased vascularity.. 06/03/2022: TSH 0.47 (normal) 07/02/2022: TSH 1.22 Assessment and plan: Mr. Musa is a 62 y.o. male with hx of HTN, PTSD, depression, recurrent prostate cancer (currently on no treatment), hyperthyroidism, neuropathy, Raynaud phenomenon, RLS. Hyperthyroidism: -Since 2010, per care everywhere w/u was unremarkable (thyroid scan, US, Abs), and he has been on MMI since then for possible Graves disease. -Of note, 50% of patients with Graves may achieve remission on MMI after 1-1.5 years. But also, I wonder if TSH was low at that time because of ?lab interference or transient thyroiditis (but would expect thyroid scan to show low uptake if done at the same time of low TSH). -I checked TSI/TRAb (came back -ve) and ordered thyroid US (showed increased vascularity), then gradually decreased MMI dose from 5 mg daily to 2.5 mg daily, then every other day now since early 06/2022. Repeat TSH has been within normal range. Will try to hold MMI now and repeat TSH again in 6 weeks (or earlier if there are concerning symptoms). If normal, will continue to repeat at intervals. -Ordered EKG given the slightly irregular rhythm on exam today to exclude Afib. Return in about 6 months (around 01/02/2023) for hyperthyroidism f/u. Time spent reviewing chart, during the encounter, putting orders and coordinating care on the encounter day is 20 minutes. Gume Watts MD Endocrinology documented in this encounter [facility] 07-05-2022 History of Present illness Narrative Images from the original note were not included. Reason for visit/chief complaint: patient has a hx of grave's disease and hyperthyroidism, compalints of increased anxiety, fatigue and has not seen an endo for years Date: 07/05/2022 Referring Provider: No ref. provider found Primary Care Provider: Caren Reyes CNP HPI: Interval hx: Wt Readings from Last 3 Encounters: 07/05/22 83.5 kg (184 lb) 06/06/22 81.3 kg (179 lb 3.2 oz) 05/27/22 80.7 kg (178 lb) 07/05/2022: MMI dose was being gradually decreased; has been on 2.5 mg every other day since early 06/2022. He gained some weight compared to last visit. No other changes that he noticed on the lower dose. He has chronic stable palpitations. Occasional tremors as before. No side effects. No bulging eyes/double vision. No neck lump or dysphagia. Occasionally he may have raspy voice. Background from the initial consult note from 2022: Mr. Musa is a 62 y.o. male with hx of HTN, PTSD, depression, recurrent prostate cancer (currently on no treatment), hyperthyroidism, neuropathy, Raynaud phenomenon, RLS. He says he had TFTs checked in 2010 as a part of checkup, which showed hyperthyroidism . He says he had anxiety, night sweats, shaking, palpitations, burning eyes, weight loss at that time. He didn't have /never told he had bulging eyes. Labs from care everywhere show low TSH of 0.1-0.2 going back to at least 2010, with normal FT4 and FT3. TSI and TBI at that time were normal. Per endocrinology note by Dr. Rema Paredes at from 10/2011, Discussed with pt slightly low TSH, with nl free T4 , unremarkable thyroid US and I 123 uptake and scan, negative thyroid antibodies , unlikely to be cause of his sx ( weight loss, hot flashes, sweats etc..). He could try methimazole and see if normalizing TSH would make any difference ., though doubt He has been taking MMI 5 mg daily since 2011. TSH has been normal since 2013 at least per chart. He says his symptoms improved after MMI was started. No vomiting or abdominal pain, but he has chronic nausea for years. No fever, but had internal throat discomfort for the last year (not like a cold sore throat). He has not seen an rim roller operator since 2012. Mr. Musa endorses fatigue, dry skin, palpitations, tremors, heat intolerance, and excessive anxiety/nervousness. No cold intolerance, constipation, hair loss, or diarrhea/hyperdefecation. He gained about 20 lb over this year. He has red/dry eyes. No bulging eyes. Occasionally, he has double vision, not at a certain direction, maybe once every 4-6 months. In regards to mechanical/obstructive symptoms, He endorses dysphagia for solids for about 10 years since he had a c-spine surgery; has been stable over time. Voice gets raspy sometimes on/off. No neck swelling, neck pain, or postural SOB. Risk factors: -Family hx of thyroid disease/cancer: he was adopted -Hx of thyroid surgery: no, never received FISHER -Hx of high risk/interfering medications: no biotin, steroids -Hx of head/neck irradiation: no -Smoking: no He recalls being off MMI for 1-2 weeks 1.5 year ago, which caused worsening anxiety. Review of Systems: as per HPI, otherwise negative Medical History: Past Medical History: Diagnosis Date Cancer (HCC) prostate 2010 Disease of thyroid gland hyper Fractures Hypertension om medication Psychiatric disorder PTSD Surgical History: Past Surgical History: Procedure Laterality Date CARPAL TUNNEL RELEASE OPEN Left 12/20/2020 Procedure: RELEASE CARPAL TUNNEL; Surgeon: Sameera Coreas MD; [facility]; Service: Orthopedic CATARACT EXTRACTION, BILATERAL 2011 cervical Bilateral [address] Monica Mancilla HARDWARE REMOVAL SHOULDER Left 12/20/2020 Procedure: HARDWARE REMOVAL LEFT SHOULDER; Surgeon: Sameera Coreas MD; Location: [facility]; Service: Orthopedic KIDNEY SURGERY Right 1969 valve duct problems when younger KNEE CARTILAGE SURGERY Left 2017 MANDIBLE SURGERY 2012 had dental work done dr malina stahl jaw ORIF CLAVICLE Left 10/22/2019 Procedure: OPEN REDUCTION INTERNAL FIXATION LEFT CLAVICLE; Surgeon: Sameera Coreas MD; Location: [facility]; Service: Orthopedic PROSTATECTOMY 2011 had cancer RELEASE CUBITAL TUNNEL Left 12/20/2020 Procedure: LEFT CUBITAL TUNNEL; Surgeon: Sameera Coreas MD; Location: [facility] OR; Service: Orthopedic SHOULDER SURGERY Right 2010 right shoulder replacement Family History: Family History Adopted: Yes Social History: Social History Socioeconomic History Marital status: Tobacco Use Smoking status: Former Types: Cigars Smokeless tobacco: Former Vaping Use Vaping Use: Never used Substance and Sexual Activity Alcohol use: No Alcohol/week: 0.0 standard drinks Drug use: No Allergies: Allergies Allergen Reactions Amlodipine Other (See Comments) Patient state it make him unbalanced and dizzy Current Medications: Current Outpatient Medications Medication Sig Dispense Refill albuterol 90 mcg/actuation inhaler Inhale 2 (two) puffs every 6 (six) hours as needed for wheezing or shortness of breath for wheezing . 18 g 1 blood pressure test kit-large Kit 1 kit by Miscellaneous route daily . 1 each 0 budesonide-formoteroL (Symbicort) 160-4.5 mcg/actuation inhaler Inhale 2 (two) puffs 2 (two) times a day . 1 each 12 fluticasone propionate (FLONASE) 50 mcg/actuation nasal spray 2 (two) sprays by Each Nare route daily . 48 mL 0 gabapentin (NEURONTIN) 800 MG tablet TAKE 1 TABLET BY MOUTH THREE TIMES A DAY . 270 tablet 0 ibuprofen (ADVIL,MOTRIN) 800 MG tablet Take 1 (one) tablet (800 mg total) by mouth every 6 (six) hours as needed for pain . 30 tablet 0 lisinopriL (PRINIVIL,ZESTRIL) 20 MG tablet Take 1 (one) tablet (20 mg total) by mouth 2 (two) times a day . 180 tablet 0 loteprednol etabonate (Eysuvis) 0.25 % DrpS 1 drop 4 (four) times a day . methIMAzole (TAPAZOLE) 5 MG tablet Take 1 (one) tablet (5 mg total) by mouth daily . 90 tablet 1 tolterodine (DETROL LA) 4 MG 24 hr capsule Take 1 (one) capsule (4 mg total) by mouth daily . 30 capsule 3 pramipexole (MIRAPEX) 1 MG tablet Take 1 (one) tablet (1 mg total) by mouth nightly . (Patient not taking: Reported on 07/05/2022 .) 30 tablet 2 No current facility-administered medications for this visit. Physical Exam: Vitals: BP (!) 185/105 Pulse 71 Ht 5' 9 Wt 83.5 kg (184 lb) BMI 27.17 kg/m , Body mass index is 27.17 kg/m ., Wt Readings from Last 3 Encounters: 07/05/22 83.5 kg (184 lb) 06/06/22 81.3 kg (179 lb 3.2 oz) 05/27/22 80.7 kg (178 lb) General/Constitutional: , well-developed and in no distress. Eyes: no lid retraction (stare), no proptosis Neck: supple, normal range of motion. no thyromegaly present Cardiovascular: normal rate, occasionally irregular rhythm, Pulmonary/Chest: effort normal Abdominal: soft, no tenderness Musculoskeletal: nomal range of motion, normal muscle mass Neurological: alert and oriented, no focal deficits, no tremors, DTRs normal Skin: warm and moist, no rash noted Psychiatric: appropriate affect Lab/Imaging Data: Lab Results Component Value Date WBC 5.75 02/21/2022 HGB 16.2 02/21/2022 HCT 49.8 02/21/2022 MCV 93.3 02/21/2022 PLT 215 02/21/2022 Lab Results Component Value Date GLUCOSE 106 (H) 02/21/2022 NA 139 02/21/2022 K 4.0 02/21/2022 CL 105 02/21/2022 BUN 14 02/21/2022 CREATININE 0.85 02/21/2022 Lab Results Component Value Date ALT 46 02/21/2022 AST 31 02/21/2022 ALKPHOS 138 02/21/2022 BILITOT 0.4 02/21/2022 Lab Results Component Value Date TSH 1.22 07/02/2022 THYROIDAB 0.7 10/02/2021 Lab Results Component Value Date CALCIUM 8.8 02/21/2022 Lab Results Component Value Date LDLCALC 119 10/02/2021 CHOL 191 10/02/2021 HDL 56 10/02/2021 TRIG 81 10/02/2021 CHOLHDL 3.4 10/02/2021 Latest Reference Range & Units 09/29/12 08:15 12/20/13 12:54 05/18/15 08:59 09/16/16 09:46 08/12/18 14:01 09/20/19 09:14 10/02/21 09:40 TSH 0.27 - 4.20 mcIU/mL 1.44 (E) 0.72 0.70 1.64 2.00 1.82 1.11 Thyroglobulin <0.1 ng/mL 22.0 (H) Thyroglobulin Ab 0.0 - 3.9 IU/mL <0.9 Thyroid Peroxidase Ab 0.0 - 9.0 IU/mL 0.7 06/24/2011: 04/04/2022: TSH 2.29, TRAb <1.10, TSI <1. 04/12/2022: US thyroid: shows no discrete nodules but increased vascularity.. 06/03/2022: TSH 0.47 (normal) 07/02/2022: TSH 1.22 Assessment and plan: Mr. Musa is a 62 y.o. male with hx of HTN, PTSD, depression, recurrent prostate cancer (currently on no treatment), hyperthyroidism, neuropathy, Raynaud phenomenon, RLS. Hyperthyroidism: -Since 2010, per care everywhere w/u was unremarkable (thyroid scan, US, Abs), and he has been on MMI since then for possible Graves disease. -Of note, 50% of patients with Graves may achieve remission on MMI after 1-1.5 years. But also, I wonder if TSH was low at that time because of ?lab interference or transient thyroiditis (but would expect thyroid scan to show low uptake if done at the same time of low TSH). -I checked TSI/TRAb (came back -ve) and ordered thyroid US (showed increased vascularity), then gradually decreased MMI dose from 5 mg daily to 2.5 mg daily, then every other day now since early 06/2022. Repeat TSH has been within normal range. Will try to hold MMI now and repeat TSH again in 6 weeks (or earlier if there are concerning symptoms). If normal, will continue to repeat at intervals. -Ordered EKG given the slightly irregular rhythm on exam today; showed no Afib; only some other changes; instructed patient to discuss them with his PCP. Return in about 6 months (around 01/02/2023) for hyperthyroidism f/u. Time spent reviewing chart, during the encounter, putting orders and coordinating care on the encounter day is 20 minutes. Gume Watts MD Endocrinology documented in this encounter [facility] 06-06-2022 History of Present illness Narrative Hematology/Oncology f/u clinic visit Chief Complaint/Reason for Consult: Recurrent prostate cancer Referring Physician: Dr. Michelle PCP: Caren Reyes, FISH PROCESSOR Interval Hx: Pt presents for f/u visit, states he feels well. He is happy to have a new rim roller operator and has been working closely to adjust the thyroid medications. No new complaints reported today. Continues to have mild LUTS but they are manageable. History of Present Illness: Vazquez Musa is a 62 y.o. male with a past medical history of HTN, Hyperthyroidism, PTSD who is being seen by hematology/oncology for recurrent prostate cancer. Briefly, patient was initially diagnosed with prostate cancer in 2010. He underwent RARP, bilateral nerve sparing surgery with Dr. Powell at [facility] on 08/30/11 (Jaffrey 3+4=7, pT2c Nx PSM). There was a positive margin on pathology per the final pathology report. He then periodically followed up with Dr. Valente for urological care but recently transitioned to [facility] urology clinic due to insurance changes. His PSA was regularly followed by Caren Reyes CNP at [facility] and had always been low until about 2 months ago when his PSA was noted to increase to 2.56 on 10/02/2021 from baseline near 0.5 since the time of the surgery. Per recommendations of Dr. Valente patient underwent PSMA scan which did not show any evidence of recurrent disease. Per his discussion with Dr. Valente on 11/22/2021, he elected to observe the PSA trend and was due to recheck the PSA in 4 months. Today, patient reports feeling fairly well, denies any new changes or any new symptoms since his last visit in urology clinic. He chronically has LUTS and hot flashes but these have been manageable for a many years and years and he is not bothered by the symptoms. Patient denies any new pain or discomfort at today's visit. Oncology History Prostate cancer ([facility]) 08/30/2011 Initial Diagnosis Prostate cancer ([facility]) 08/30/2011 Surgery [facility] Final Pathologic Diagnosis A. Anterior prostate fat, biopsy: - Fibroadipose tissue, negative for neoplasia B. Prostate and seminal vesicles, robotic prostatectomy: - Prostatic adenocarcinoma, Naima score 3+4=7 SYNOPTIC REPORT FOR CARCINOMA OF THE PROSTATE: Histologic type: ACINAR Jaffrey score: 3+4=7 % of gland involved by tumor: 12 Tumor extent (n=no, y=yes, na=not applicable): Laterality (r=right, l=left, b=bilateral): B Extraprostatic extension (f=focal, m=multifocal): N (SEE COMMENT) Location of extraprostatic extension: NA Microscopic invasion of bladder neck: N Seminal vesicle muscle wall invasion: N Invasion of rectum, levator muscles or pelvic wall: NA Margins (n=negative, p=positive, na=not applicable): Immaculata: N Bladder neck: N Other margins: P Distance of tumor to closest margin (cm): NA Location of positive margin: RIGHT ANTERIOR, RIGHT ANTERIOLATERAL Length of longest positive margin (cm): 0.05 Regional lymph nodes (na=not applicable): Number examined: 0 Number positive: NA Number negative: NA 11/06/2021 Imaging EXAM: PET SCAN IMPRESSION: No evidence for F-18 PSMA expressing recurrent disease Other PSA Labs 06/03/22 - 3.34 02/21/22 - 2.77 12/24/21 - 3.00 10/02/21 - 2.56 10/13/17 - 0.56 Past Medical History: Diagnosis Date Cancer (HCC) prostate 2011 Disease of thyroid gland hyper Fractures Hypertension om medication Psychiatric disorder PTSD Past Surgical History: Procedure Laterality Date CARPAL TUNNEL RELEASE OPEN Left 12/20/2020 Procedure: RELEASE CARPAL TUNNEL; Surgeon: Sameera Coreas MD; Location: [facility] OR; Service: Orthopedic CATARACT EXTRACTION, BILATERAL 2011 cervical Bilateral [address] Monica Mancilla HARDWARE REMOVAL SHOULDER Left 12/20/2020 Procedure: HARDWARE REMOVAL LEFT SHOULDER; Surgeon: Sameera Coreas MD; Location: [facility] OR; Service: Orthopedic KIDNEY SURGERY Right 1969 valve duct problems when younger KNEE CARTILAGE SURGERY Left 2017 MANDIBLE SURGERY 2012 had dental work done dr malina stahl jaw ORIF CLAVICLE Left 10/22/2019 Procedure: OPEN REDUCTION INTERNAL FIXATION LEFT CLAVICLE; Surgeon: Sameera Coreas MD; Location: [facility] OR; Service: Orthopedic PROSTATECTOMY 2010 had cancer RELEASE CUBITAL TUNNEL Left 12/20/2020 Procedure: LEFT CUBITAL TUNNEL; Surgeon: Sameera Coreas MD; Location: [facility]; Service: Orthopedic SHOULDER SURGERY Right 2010 right shoulder replacement Family History Adopted: Yes Social History Socioeconomic History Marital status: Tobacco Use Smoking status: Former Types: Cigars Smokeless tobacco: Former Vaping Use Vaping Use: Never used Substance and Sexual Activity Alcohol use: No Alcohol/week: 0.0 standard drinks Drug use: No Allergies Allergen Reactions Amlodipine Other (See Comments) Patient state it make him unbalanced and dizzy Current Outpatient Medications Medication Sig Dispense Refill albuterol 90 mcg/actuation inhaler Inhale 2 (two) puffs every 6 (six) hours as needed for wheezing or shortness of breath for wheezing . 18 g 1 blood pressure test kit-large Kit 1 kit by Miscellaneous route daily . 1 each 0 budesonide-formoteroL (Symbicort) 160-4.5 mcg/actuation inhaler Inhale 2 (two) puffs 2 (two) times a day . 1 each 12 fluticasone propionate (FLONASE) 50 mcg/actuation nasal spray 2 (two) sprays by Each Nare route daily . 48 mL 0 gabapentin (NEURONTIN) 800 MG tablet TAKE 1 TABLET BY MOUTH THREE TIMES A DAY . 270 tablet 0 ibuprofen (ADVIL,MOTRIN) 800 MG tablet Take 1 (one) tablet (800 mg total) by mouth every 6 (six) hours as needed for pain . 30 tablet 0 lisinopriL (PRINIVIL,ZESTRIL) 20 MG tablet Take 1 (one) tablet (20 mg total) by mouth 2 (two) times a day . 180 tablet 0 loteprednol etabonate (Eysuvis) 0.25 % DrpS 1 drop 4 (four) times a day . methIMAzole (TAPAZOLE) 5 MG tablet Take 1 (one) tablet (5 mg total) by mouth daily . 90 tablet 1 pramipexole (MIRAPEX) 1 MG tablet Take 1 (one) tablet (1 mg total) by mouth nightly . 30 tablet 2 tolterodine (DETROL LA) 4 MG 24 hr capsule Take 1 (one) capsule (4 mg total) by mouth daily . 30 capsule 3 No current facility-administered medications for this visit. Review of Systems: A Complete review of systems was performed and is negative except for what is listed in the HPI Physical Exam: PACU Vitals 06/06/22 1128 BP: (!) 161/84 Pulse: 77 Temp: 97.8 F (36.6 C) SpO2: 95% ECOG 0 Gen: NAD, resting comfortably HEENT: NCAT, no temporal wasting, anicteric sclerae, mmm, no op lesions Neck: supple, no thyromegaly or LAD Lymphatics: no cervical, axillary, or inguinal adenopathy Chest: CTAB, no w/r/r, no respiratory distress CV: RRR, no m/r/g, normal S1, S2 Abd: soft, nontender, nondistended, +BS, no hepatosplenomegaly Ext: wwp, no c/c/e Skin: no rashes or lesions, multiple tattoos b/l upper extremities Neuro: Alert and oriented x4, no focal deficits, moves all four extremities Psych: Mood normal, affect normal. Labs: Lab Results Component Value Date WBC 5.75 02/21/2022 HGB 16.2 02/21/2022 HCT 49.8 02/21/2022 MCV 93.3 02/21/2022 PLT 215 02/21/2022 RBC 5.34 02/21/2022 Lab Results Component Value Date GLUCOSE 106 (H) 02/21/2022 CALCIUM 8.8 02/21/2022 NA 139 02/21/2022 K 4.0 02/21/2022 CL 105 02/21/2022 BUN 14 02/21/2022 CREATININE 0.85 02/21/2022 Lab Results Component Value Date ALT 46 02/21/2022 AST 31 02/21/2022 ALKPHOS 138 02/21/2022 BILITOT 0.4 02/21/2022 Assessment & Recommendations: Vazquez Musa is a 62 y.o. male with a past medical history of HTN, Hyperthyroidism, PTSD who is being seen by hematology/oncology for recurrent prostate cancer. 1. 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 -After the initial evaluation I had extensive discussion with the patient reviewing available imaging results and lab result and overall nature and clinical course of biochemical recurrence of prostate cancer. -Patient underwent PET/PSMA in October 2021 which did not show any evidence of metastatic prostate cancer Last few PSA trend as follows Latest Reference Range & Units 10/02/21 09:40 12/24/21 11:24 02/21/22 09:02 06/03/22 11:57 PSA 0.00 - 0.99 ng/mL 2.56 (H) 3.00 (H) 2.77 (H) 3.34 (H) -We discussed at length the options that are available to him in terms of the next steps. We can consider initiation of androgen deprivation therapy versus close observation. Since there is no tangible disease present on most recent imaging studies and patient denies any new pain or discomfort, patient elected to observe his PSA trend closely -We attempted to obtain a repeat CT scan to assess for any progression of systemic disease but this was denied by his insurance. -I recommend repeating the PSA in 3 months to continue close observation. If there are any new symptoms or significant elevation in PSA, we will then pursue further imaging with CT scans and nuclear medicine bone scan. -He will need to continue to follow-up in urology clinic for other symptoms RTC in 3 months with repeat labs prior to his visit. Education Provided Education/Instructions given to: (x) Patient (_) Spouse (_) Parent (_) Other Barriers to Learning: (x) None (_) Yes (identify):_ Content: (x) Refer to note above (_)Other (identify):_ Evaluation/Outcome: (x) Verbalized understanding (_) Demonstrated understanding (_) Other:_ Kari Hartmann MD documented in this encounter [facility] 2022 Instructions Gume Watts MD - 2022 3:05 PM EDT Please have labs done on the way out. I ordered ultrasound of thyroid. Let me know if you develop sore throat, fever, any infection (if, so you will also need to hold methimazole transiently till we make sure your blood counts are normal), abdominal pain, nausea, vomiting, change in urine/stool color, yellowish eye discoloration. documented in this encounter [facility] 2022 History of Present illness Narrative Images from the original note were not included. Reason for visit/chief complaint: patient has a hx of grave's disease and hyperthyroidism, compalints of increased anxiety, fatigue and has not seen an endo for years Date: 2022 Referring Provider: Kari Hartmann MD Primary Care Provider: Caren Reyes, FISH PROCESSOR HPI: Mr. Musa is a 62 y.o. male with hx of HTN, PTSD, depression, recurrent prostate cancer (currently on no treatment), hyperthyroidism, neuropathy, Raynaud phenomenon, RLS. He says he had TFTs checked in 2010 as a part of checkup, which showed hyperthyroidism . He says he had anxiety, night sweats, shaking, palpitations, burning eyes, weight loss at that time. He didn't have /never told he had bulging eyes. Labs from care everywhere show low TSH of 0.1-0.2 going back to at least 2010, with normal FT4 and FT3. TSI and TBI at that time were normal. Per endocrinology note by Dr. Rema Paredes at from 10/2011, Discussed with pt slightly low TSH, with nl free T4 , unremarkable thyroid US and I 123 uptake and scan, negative thyroid antibodies , unlikely to be cause of his sx ( weight loss, hot flashes, sweats etc..). He could try methimazole and see if normalizing TSH would make any difference ., though doubt He has been taking MMI 5 mg daily since 2011. TSH has been normal since 2013 at least per chart. He says his symptoms improved after MMI was started. No vomiting or abdominal pain, but he has chronic nausea for years. No fever, but had internal throat discomfort for the last year (not like a cold sore throat). He has not seen an rim roller operator since 2012. Mr. Musa endorses fatigue, dry skin, palpitations, tremors, heat intolerance, and excessive anxiety/nervousness. No cold intolerance, constipation, hair loss, or diarrhea/hyperdefecation. He gained about 20 lb over this year. He has red/dry eyes. No bulging eyes. Occasionally, he has double vision, not at a certain direction, maybe once every 4-6 months. In regards to mechanical/obstructive symptoms, He endorses dysphagia for solids for about 10 years since he had a c-spine surgery; has been stable over time. Voice gets raspy sometimes on/off. No neck swelling, neck pain, or postural SOB. Risk factors: -Family hx of thyroid disease/cancer: he was adopted -Hx of thyroid surgery: no, never received FISHER -Hx of high risk/interfering medications: no biotin, steroids -Hx of head/neck irradiation: no -Smoking: no He recalls being off MMI for 1-2 weeks 1.5 year ago, which caused worsening anxiety. Review of Systems: as per HPI, otherwise negative Medical History: Past Medical History: Diagnosis Date Cancer (HCC) prostate 2010 Disease of thyroid gland hyper Fractures Hypertension om medication Psychiatric disorder PTSD Surgical History: Past Surgical History: Procedure Laterality Date CARPAL TUNNEL RELEASE OPEN Left 12/20/2020 Procedure: RELEASE CARPAL TUNNEL; Surgeon: Sameera Coreas MD; Location: [facility]; Service: Orthopedic CATARACT EXTRACTION, BILATERAL 2011 cervical Bilateral [address] Monica Mancilla HARDWARE REMOVAL SHOULDER Left 12/20/2020 Procedure: HARDWARE REMOVAL LEFT SHOULDER; Surgeon: Sameera Coreas MD; Location: [facility]; Service: Orthopedic KIDNEY SURGERY Right 1969 valve duct problems when younger KNEE CARTILAGE SURGERY Left 2017 MANDIBLE SURGERY 2012 had dental work done dr malina stahl jaw ORIF CLAVICLE Left 10/22/2019 Procedure: OPEN REDUCTION INTERNAL FIXATION LEFT CLAVICLE; Surgeon: Sameera Coreas MD; Location: [facility]; Service: Orthopedic PROSTATECTOMY 2010 had cancer RELEASE CUBITAL TUNNEL Left 12/20/2020 Procedure: LEFT CUBITAL TUNNEL; Surgeon: Sameera Coreas MD; Location: [facility]; Service: Orthopedic SHOULDER SURGERY Right 2011 right shoulder replacement Family History: Family History Adopted: Yes Social History: Social History Socioeconomic History Marital status: Tobacco Use Smoking status: Former Types: Cigars Smokeless tobacco: Former Vaping Use Vaping Use: Never used Substance and Sexual Activity Alcohol use: No Alcohol/week: 0.0 standard drinks Drug use: No Allergies: Allergies Allergen Reactions Amlodipine Other (See Comments) Patient state it make him unbalanced and dizzy Current Medications: Current Outpatient Medications Medication Sig Dispense Refill albuterol 90 mcg/actuation inhaler Inhale 2 (two) puffs every 6 (six) hours as needed for wheezing or shortness of breath for wheezing . 18 g 1 blood pressure test kit-large Kit 1 kit by Miscellaneous route daily . 1 each 0 budesonide-formoteroL (Symbicort) 160-4.5 mcg/actuation inhaler Inhale 2 (two) puffs 2 (two) times a day . 1 each 12 fluticasone propionate (FLONASE) 50 mcg/actuation nasal spray 2 (two) sprays by Each Nare route daily . 48 mL 0 gabapentin (NEURONTIN) 800 MG tablet TAKE 1 TABLET BY MOUTH THREE TIMES A DAY . 270 tablet 0 ibuprofen (ADVIL,MOTRIN) 800 MG tablet Take 1 (one) tablet (800 mg total) by mouth every 6 (six) hours as needed for pain . 30 tablet 0 lisinopriL (PRINIVIL,ZESTRIL) 20 MG tablet Take 1 (one) tablet (20 mg total) by mouth 2 (two) times a day . 180 tablet 0 loteprednol etabonate (Eysuvis) 0.25 % DrpS 1 drop 4 (four) times a day . methIMAzole (TAPAZOLE) 5 MG tablet Take 1 (one) tablet (5 mg total) by mouth daily . 90 tablet 1 pramipexole (MIRAPEX) 1 MG tablet Take 1 (one) tablet (1 mg total) by mouth nightly . 30 tablet 2 tolterodine (DETROL LA) 4 MG 24 hr capsule Take 1 (one) capsule (4 mg total) by mouth daily . 30 capsule 3 No current facility-administered medications for this visit. Physical Exam: Vitals: BP (!) 182/96 Pulse 78 Ht 5' 5 Wt 78.5 kg (173 lb) BMI 28.79 kg/m , Body mass index is 28.79 kg/m ., Wt Readings from Last 3 Encounters: 04/03/22 78.5 kg (173 lb) 03/19/22 79.4 kg (175 lb) 02/25/22 77.7 kg (171 lb 4.8 oz) General/Constitutional: , well-developed and in no distress. Head: atrautmatic, no facial leasions observed Mouth/Throat: oropharynx is clear and moist Eyes: no lid retraction (stare), no proptosis, no lid lag, no limitation in eye movement. Neck: supple, normal range of motion. no thyromegaly present, no tenderness or bruit Cardiovascular: normal rate, regular rhythm, normal heart sounds and intact distal pulses, no edema. Pulmonary/Chest: effort normal and breath sounds normal, no respiratory distress Abdominal: soft, no tenderness Musculoskeletal: nomal range of motion, normal muscle mass Neurological: alert and oriented, no focal deficits, no tremors (?subtle on R hand), DTRs normal Skin: warm and moist, no rash noted Psychiatric: appropriate affect Lab/Imaging Data: Lab Results Component Value Date WBC 5.75 02/21/2022 HGB 16.2 02/21/2022 HCT 49.8 02/21/2022 MCV 93.3 02/21/2022 PLT 215 02/21/2022 Lab Results Component Value Date GLUCOSE 106 (H) 02/21/2022 NA 139 02/21/2022 K 4.0 02/21/2022 CL 105 02/21/2022 BUN 14 02/21/2022 CREATININE 0.85 02/21/2022 Lab Results Component Value Date ALT 46 02/21/2022 AST 31 02/21/2022 ALKPHOS 138 02/21/2022 BILITOT 0.4 02/21/2022 Lab Results Component Value Date TSH 1.11 10/02/2021 THYROIDAB 0.7 10/02/2021 Lab Results Component Value Date CALCIUM 8.8 02/21/2022 Lab Results Component Value Date LDLCALC 119 10/02/2021 CHOL 191 10/02/2021 HDL 56 10/02/2021 TRIG 81 10/02/2021 CHOLHDL 3.4 10/02/2021 Latest Reference Range & Units 09/29/12 08:15 12/20/13 12:54 05/18/15 08:59 09/16/16 09:46 08/12/18 14:01 09/20/19 09:14 10/02/21 09:40 TSH 0.27 - 4.20 mcIU/mL 1.44 (E) 0.72 0.70 1.64 2.00 1.82 1.11 Thyroglobulin <0.1 ng/mL 22.0 (H) Thyroglobulin Ab 0.0 - 3.9 IU/mL <0.9 Thyroid Peroxidase Ab 0.0 - 9.0 IU/mL 0.7 06/24/2011: Assessment and plan: Mr. Musa is a 62 y.o. male with hx of HTN, PTSD, depression, recurrent prostate cancer (currently on no treatment), hyperthyroidism, neuropathy, Raynaud phenomenon, RLS. Hyperthyroidism: -Since 2010, per care everywhere w/u was unremarkable (thyroid scan, US, Abs), and he has been on MMI since then for possible Graves disease. -Of note, 50% of patients with Graves may achieve remission on MMI after 1-1.5 years. But also, I wonder if TSH was low at that time because of ?lab interference or transient thyroiditis (but would expect thyroid scan to show low uptake if done at the same time of low TSH). -That being said, and since he has been on the medicine for all these years, I will check TSI/TRAb and get thyroid US; if all came back unremarkable, I will consider holding MMI and repeating labs off the medicine (after making sure we exclude possible lab interference) while monitoring his symptoms. Patient is agreeable to plan. Return in about 3 months (around 07/04/2022) for hyperthyroidism f/u. Time spent reviewing chart, during the encounter, putting orders and coordinating care on the encounter day is 62 minutes. Gume Watts MD Endocrinology documented in this encounter [facility] 12-25-2021 History of Present illness Narrative Referral received via case finding report. Chart reviewed, flowsheet updated and added myself to tx team. Will f/u w/ pt to introduce self, navigation services and assess for navigation needs. documented in this encounter [facility] 12-24-2021 Instructions Sadie Ballesteros RN - 12/24/2021 11:08 AM EDT Please stop at the lab on the main floor and have your blood drawn before leaving today. 2. Please have your labs drawn at any [facility] lab 2-3 days before your next scheduled office visit. If you do not use an [facility] lab, please bring your lab results to your office appointment. documented in this encounter [facility] 12-24-2021 History of Present illness Narrative Hematology/Oncology Initial Consult Note Chief Complaint/Reason for Consult: Recurrent prostate cancer Referring Physician: Dr. Michelle PCP: Caren Reyes CNP History of Present Illness: Vazquez Musa is a 61 y.o. male with a past medical history of HTN, Hyperthyroidism, PTSD who is being seen by hematology/oncology for recurrent prostate cancer. Briefly, patient was initially diagnosed with prostate cancer in 2010. He underwent RARP, bilateral nerve sparing surgery with Dr. Powell at [facility] on 08/30/11 (Naima 3+4=7, pT2c Nx PSM). There was a positive margin on pathology per the final pathology report. He then periodically followed up with Dr. Valente for urological care but recently transitioned to [facility] urology clinic due to insurance changes. His PSA was regularly followed by Dr. Caren Zuniga at [facility] and had always been low until about 2 months ago when his PSA was noted to increase to 2.56 on 10/02/2021 from baseline near 0.5 since the time of the surgery. Per recommendations of Dr. Valente patient underwent PSMA scan which did not show any evidence of recurrent disease. Per his discussion with Dr. Valente on 11/22/2021, he elected to observe the PSA trend and was due to recheck the PSA in 4 months. Today, patient reports feeling fairly well, denies any new changes or any new symptoms since his last visit in urology clinic. He chronically has L UTS and hot flashes but these have been manageable for a many years and years and he is not bothered by the symptoms. Patient denies any new pain or discomfort at today's visit. Oncology History Prostate cancer (HCC) 08/30/2011 Initial Diagnosis Prostate cancer (HCC) 08/30/2011 Surgery [facility] Final Pathologic Diagnosis A. Anterior prostate fat, biopsy: - Fibroadipose tissue, negative for neoplasia B. Prostate and seminal vesicles, robotic prostatectomy: - Prostatic adenocarcinoma, Jaffrey score 3+4=7 SYNOPTIC REPORT FOR CARCINOMA OF THE PROSTATE: Histologic type: ACINAR Jaffrey score: 3+4=7 % of gland involved by tumor: 12 Tumor extent (n=no, y=yes, na=not applicable): Laterality (r=right, l=left, b=bilateral): B Extraprostatic extension (f=focal, m=multifocal): N (SEE COMMENT) Location of extraprostatic extension: NA Microscopic invasion of bladder neck: N Seminal vesicle muscle wall invasion: N Invasion of rectum, levator muscles or pelvic wall: NA Margins (n=negative, p=positive, na=not applicable): Immaculata: N Bladder neck: N Other margins: P Distance of tumor to closest margin (cm): NA Location of positive margin: RIGHT ANTERIOR, RIGHT ANTERIOLATERAL Length of longest positive margin (cm): 0.05 Regional lymph nodes (na=not applicable): Number examined: 0 Number positive: NA Number negative: NA 11/06/2021 Imaging EXAM: PET SCAN IMPRESSION: No evidence for F-18 PSMA expressing recurrent disease Other PSA Trend 10/02/21 - 2.56 08/12/18 - 0.56 Past Medical History: Diagnosis Date Cancer (HCC) prostate 2010 Disease of thyroid gland hyper Fractures Hypertension om medication Psychiatric disorder PTSD Past Surgical History: Procedure Laterality Date CARPAL TUNNEL RELEASE OPEN Left 12/20/2020 Procedure: RELEASE CARPAL TUNNEL; Surgeon: Sameera Coreas MD; Location: [facility]; Service: Orthopedic CATARACT EXTRACTION, BILATERAL 2011 cervical Bilateral [address] Monica Mancilla HARDWARE REMOVAL SHOULDER Left 12/20/2020 Procedure: HARDWARE REMOVAL LEFT SHOULDER; Surgeon: Sameera Coreas MD; Location: [facility]; Service: Orthopedic KIDNEY SURGERY Right 1969 valve duct problems when younger KNEE CARTILAGE SURGERY Left 2016 MANDIBLE SURGERY 2012 had dental work done dr malina stahl jaw ORIF CLAVICLE Left 10/22/2019 Procedure: OPEN REDUCTION INTERNAL FIXATION LEFT CLAVICLE; Surgeon: Sameera Coreas MD; Location: [facility]; Service: Orthopedic PROSTATECTOMY 2010 had cancer RELEASE CUBITAL TUNNEL Left 12/20/2020 Procedure: LEFT CUBITAL TUNNEL; Surgeon: Sameera Coreas MD; Location: [facility]; Service: Orthopedic SHOULDER SURGERY Right 2010 right shoulder replacement Family History Adopted: Yes Social History Socioeconomic History Marital status: Tobacco Use Smoking status: Former Smoker Types: Cigars Smokeless tobacco: Former User Vaping Use Vaping Use: Never used Substance and Sexual Activity Alcohol use: No Alcohol/week: 0.0 standard drinks Drug use: No Allergies Allergen Reactions Amlodipine Other (See Comments) Patient state it make him unbalanced and dizzy Current Outpatient Medications Medication Sig Dispense Refill albuterol 90 mcg/actuation inhaler Inhale 2 (two) puffs every 6 (six) hours as needed for wheezing or shortness of breath for wheezing . 18 g 1 blood pressure test kit-large Kit 1 kit by Miscellaneous route daily . 1 each 0 budesonide-formoteroL (Symbicort) 160-4.5 mcg/actuation inhaler Inhale 2 (two) puffs 2 (two) times a day . 1 each 12 fluticasone propionate (FLONASE) 50 mcg/actuation nasal spray 2 (two) sprays by Each Nare route daily . 48 mL 0 gabapentin (NEURONTIN) 800 MG tablet TAKE 1 TABLET BY MOUTH THREE TIMES A DAY . 270 tablet 0 ibuprofen (ADVIL,MOTRIN) 600 MG tablet Take 1 (one) tablet (600 mg total) by mouth every 6 (six) hours as needed for pain . 30 tablet 0 lisinopriL (PRINIVIL,ZESTRIL) 20 MG tablet Take 1 (one) tablet (20 mg total) by mouth 2 (two) times a day . 180 tablet 0 loteprednol etabonate (Eysuvis) 0.25 % DrpS 1 drop 4 (four) times a day . methIMAzole (TAPAZOLE) 5 MG tablet Take 1 (one) tablet (5 mg total) by mouth daily . 90 tablet 1 pramipexole (MIRAPEX) 1 MG tablet Take 1 (one) tablet (1 mg total) by mouth nightly . 30 tablet 2 tolterodine (DETROL LA) 4 MG 24 hr capsule Take 1 (one) capsule (4 mg total) by mouth daily . 30 capsule 3 No current facility-administered medications for this visit. Review of Systems: A Complete review of systems was performed and is negative except for what is listed in the HPI Physical Exam: PACU Vitals 12/24/21 1032 BP: (!) 177/97 Pulse: 67 Temp: 98.3 F (36.8 C) SpO2: 96% ECOG 0 Gen: NAD, resting comfortably HEENT: NCAT, no temporal wasting, anicteric sclerae, mmm, no op lesions Neck: supple, no thyromegaly or LAD Lymphatics: no cervical, axillary, or inguinal adenopathy Chest: CTAB, no w/r/r, no respiratory distress CV: RRR, no m/r/g, normal S1, S2 Abd: soft, nontender, nondistended, +BS, no hepatosplenomegaly Ext: wwp, no c/c/e Skin: no rashes or lesions, multiple tattoos b/l upper extremities Neuro: Alert and oriented x4, no focal deficits, moves all four extremities Psych: Mood normal, affect normal. Labs: Lab Results Component Value Date WBC 6.08 10/02/2021 HGB 16.2 10/02/2021 HCT 48.0 10/02/2021 MCV 90.2 10/02/2021 PLT 203 10/02/2021 RBC 5.32 10/02/2021 Lab Results Component Value Date GLUCOSE 111 (H) 10/02/2021 CALCIUM 9.5 10/02/2021 NA 139 10/02/2021 K 4.0 10/02/2021 CL 107 10/02/2021 BUN 16 10/02/2021 CREATININE 0.96 10/02/2021 Lab Results Component Value Date ALT 72 (H) 10/02/2021 AST 48 (H) 10/02/2021 ALKPHOS 119 10/02/2021 BILITOT 0.6 10/02/2021 Assessment & Recommendations: Vazquez Musa is a 61 y.o. male with a past medical history of HTN, Hyperthyroidism, PTSD who is being seen by hematology/oncology for recurrent prostate cancer. 1. 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 -I had extensive discussion with the patient reviewing available imaging results and lab result but did note that we are still missing records from the PSA trend from his primary care provider's office. We will obtain those records today -We discussed at length the options that are available to him in terms of the next steps. We can consider initiation of androgen deprivation therapy versus close observation. Since there is no tangible disease present on most recent imaging studies and patient denies any new pain or discomfort, patient elected to observe his PSA trend closely -I recommend obtaining his PSA today and again in 2 months to obtain more data point prior to making any decisions about therapy -He will need to continue to follow-up in urology clinic for other symptoms RTC in 2 months with repeat labs prior to his visit. Education Provided Education/Instructions given to: (x) Patient (_) Spouse (_) Parent (_) Other Barriers to Learning: (x) None (_) Yes (identify):_ Content: (x) Refer to note above (_)Other (identify):_ Evaluation/Outcome: (x) Verbalized understanding (_) Demonstrated understanding (_) Other:_ Kari Hartmann MD documented in this encounter [facility] 11-15-2021 History of Present illness Narrative Chief Complaint Prostate cancer HPI Mr. Musa is a 61 y.o. male with history of prostate cancer s/p RARP, bilateral nerve sparing 08/30/11 (Naima 3+4=7, pT2c Nx PSM) He follow up with Dr. Valente Surgery done at [facility] with Dr. Powell Per path report, no lymph node dissection done and have PSM Not sure if he archived undetectable PSA He follow up with Dr. Valente for his PSA surveillance. He saw him recently His PSA went up to 2.[address] Valente order PET scan, this was done recently He has CHRISTIAN since after his surgery and is using 3 pads a day He had no erections for 10 years Had peyronie with left sided curvature No bone pain and no obstructive LUTS Past Medical History Past Medical History: Diagnosis Date Cancer (HCC) prostate 2010 Disease of thyroid gland hyper Fractures Hypertension om medication Psychiatric disorder PTSD Past Surgical History He has a past surgical history that includes Shoulder surgery (Right, 2010); Prostatectomy (2010); cervical (Bilateral, 2012); Knee cartilage surgery (Left, 2016); Cataract extraction, bilateral (2011); Mandible surgery (2012); Kidney surgery (Right, 1969); Orif Clavicle (Left, 10/22/2019); Hardware Removal Shoulder (Left, 12/20/2020); RELEASE CUBITAL TUNNEL (Left, 12/20/2020); and Carpal Tunnel Release Open (Left, 12/20/2020). Medications He has a current medication list which includes the following prescription(s): albuterol, blood pressure test kit-large, budesonide-formoterol, fluticasone propionate, gabapentin, ibuprofen, lisinopril, eysuvis, methimazole, pramipexole, and tolterodine. Allergies Allergies Allergen Reactions Amlodipine Other (See Comments) Patient state it make him unbalanced and dizzy Social History He reports that he has quit smoking. His smoking use included cigars. He has quit using smokeless tobacco. He reports that he does not drink alcohol and does not use drugs. Family History He has no family history of prostate, bladder or kidney cancer He has no family history of kidney stones Review of Systems Constitutional: No fevers or chills Skin: Negative for rash Endocrine: No heat/cold intolerance Cardiovascular: Negative for chest pain or dyspnea on exertion Respiratory: Negative for shortness of breath or wheezing Gastrointestinal: No constipation, nausea or vomiting Genitourinary: see HPI. Musculoskeletal: No flank pain Neurological: Negative for frequent headaches or dizziness Lymph/Heme: Negative for leg swelling or calf pain. Physical Exam BP (!) 148/86 (BP Location: Right arm, Patient Position: Sitting, BP Cuff Size: Adult) Pulse 89 SpO2 96% Constitutional: NAD, WDWN. HEENT: NCAT. Conjunctivae normal. MMM. Cardiovascular: Regular rate. Pulmonary/Chest: Respirations are even and non-labored bilaterally. Abdominal: Soft. No distension, tenderness, masses or guarding. No CVA tenderness. Neurological: A + O x 3. Cranial Nerves II-XII grossly intact. Normal gait. Extremities: HEMA x 4, Warm. No clubbing. No cyanosis. Skin: [place], warm and dry. No rashes noted. Psychiatric: Normal mood and affect Genitourinary Penis: circumcised penis, glans normal, no penile discharge. No rashes/lesions. Testes: descended bilaterally, no masses, nontender to palpation. Remainder of scrotal contents normal. No hernia appreciated. Rectal: Normal tone, no masses. Prostate: Flat Labs Lab Results Component Value Date WBC 6.08 10/02/2021 HGB 16.2 10/02/2021 HCT 48.0 10/02/2021 MCV 90.2 10/02/2021 PLT 203 10/02/2021 Lab Results Component Value Date GLUCOSE 111 (H) 10/02/2021 CALCIUM 9.5 10/02/2021 NA 139 10/02/2021 K 4.0 10/02/2021 CL 107 10/02/2021 BUN 16 10/02/2021 CREATININE 0.96 10/02/2021 Recent Results (from the past 24 hour(s)) POC Urinalysis Dipstick, Auto Collection Time: 11/15/21 8:53 AM Result Value Ref Range Glucose, UA Negative Normal, Negative mg/dL Bilirubin, UA Negative Negative Ketones, UA Negative Negative mg/dL Spec Grav, UA 1.030 (A) 1.005 - 1.025 Blood, UA Negative Negative pH, UA 6.5 5.0 - 7.0 Protein, UA Negative Negative mg/dL Urobilinogen, UA 1.0 <2.0, 0.2, Normal, Negative, 1.0, 2.0, <1.0 mg/dL Nitrite, UA Negative Negative Leukocyte Esterase, UA Negative Negative Radiologic Studies PET scan report available to review, ALONA Bone scan report O[facility] AL[facility] ---Final Pathologic Diagnosis--- (08/30/12) A. Anterior prostate fat, biopsy: - Fibroadipose tissue, negative for neoplasia B. Prostate and seminal vesicles, robotic prostatectomy: - Prostatic adenocarcinoma, Jaffrey score 3+4=7 SYNOPTIC REPORT FOR CARCINOMA OF THE PROSTATE: Histologic type: ACINAR Naima score: 3+4=7 % of gland involved by tumor: 12 Tumor extent (n=no, y=yes, na=not applicable): Laterality (r=right, l=left, b=bilateral): B Extraprostatic extension (f=focal, m=multifocal): N (SEE COMMENT) Location of extraprostatic extension: NA Microscopic invasion of bladder neck: N Seminal vesicle muscle wall invasion: N Invasion of rectum, levator muscles or pelvic wall: NA Margins (n=negative, p=positive, na=not applicable): Immaculata: N Bladder neck: N Other margins: P Distance of tumor to closest margin (cm): NA Location of positive margin: RIGHT ANTERIOR, RIGHT ANTERIOLATERAL Length of longest positive margin (cm): 0.05 Regional lymph nodes (na=not applicable): Number examined: 0 Number positive: NA Number negative: NA Additional pathologic findings (lymphovascular invasion, therapy effect): NONE Inspection Engineer tumor block: B5 pTNM: pT2c NX Lab Results Component Value Date PSASCRN 2.56 (H) 10/02/2021 PSASCRN 0.56 08/12/2018 PSASCRN 0.33 09/16/2016 Assessment Mr. Musa is a 61 y.o. male who presents with recurrent prostate cancer. His PSA went up to 2.56 last month and bone scan and PET were ordered by Dr. Valente, I do not have access to the images but reports showing ALONA I will refer him to medical oncology team to discuss options for recurrent prostate cancer He can see one of my partner for his CHRISTIAN, ED and Peyronie disease. No follow up with me is needed. Plan 1. Med oncology referral, see me after. Happy to refer to one of my partners for his ED, CHRISTIAN and [place] I spent 45 min during this face to face encounter with > 50% spent counseling on recurrent prostate cancer Foster Michelle MD Urologic Oncologist [facility] documented in this encounter [facility] 10-29-2021 Note HNO ID: [id number] Author: Rich Guajardo MD Service: ? Author Type: Physician Type: Progress Notes Filed: 10/29/2021 11:34 AM Note Text: ASSESSMENT/PLAN: 1. Meibomian gland dysfunction (MGD) of upper and lower lids of both eyes - ICD9: 373.00, ICD10: H02.88A, H02.88B (primary diagnosis) 2. Punctate keratitis of both eyes - ICD9: 370.21, ICD10: H16.143 3. Dry eye syndrome of both eyes - ICD9: 375.15, ICD10: H04.123 Current Ophthalmic Meds loteprednol etabonate (EYSUVIS) 0.25 % drps Use 1 Drop in both eyes once daily for 2 weeks then stop erythromycin (ROMYCIN) 5 mg/gram (0.5 %) ophthalmic ointment Use 1 application in both eyes daily at bedtime. Rub onto lashes / lids propylene glycoL (SYSTANE COMPLETE) 0.6 % drop Use 1 Drop in both eyes three times daily. 4. Pseudophakia, both eyes - ICD9: V43.1, ICD10: Z96.1 - Intraocular lens good position Rich Guajardo MD I have confirmed and edited as necessary the relevant ophthalmic history, review of systems, surgical history, and ophthalmological examination findings as obtained by the ophthalmic technical staff. I have seen and examined Vazquez Musa. I have discussed the examination findings, diagnosis, and treatment options with Vazquez Musa and/or his family. I have also reviewed and agree with the assessment and plan as stated above and agree with all its relevant components. I gave the patient the opportunity to ask questions about the findings, diagnosis, and treatment options. [facility] 10-23-2021 History of Present illness Narrative Elevated PSA with prostate CA. Prostatectomy 2011. pt was scheduled a PET/CT and is here today for results.LUTs are chronic and mild. Denies frequency and urgency. Patient has incontinence and wears a brief all the time...Denies dysuria and hematuria.. Nocturia x3. .Most recent PSA was (10/23) 2.56 . Caffeine does worsen LUTs.. Tolterodine for LUTs Patient states it is not effective...No.Hx of Kidney Stones. No Hx of UTI's.On November 06, PSMA scan revealed No evidence for F-18 PSMA expressing recurrent disease. We had a very long and extensive discussion with the patient regarding the pathophysiology, differential diagnosis, risk factor, management, natural history, incidence and diagnostic work-up of the condition. We discussed in detail biochemical recurrence of castrate sensitive prostate cancer. Discussed option of management including ADT observation. Patient was understanding like to observe for now. Discussed the risk, benefit, potential complication, adverse event quality of life, life survival. He verbalized understanding like to proceed. [facility] Work Phone: 10-15-2021 Note HNO ID: [id number] Author: Rich Guajardo MD Service: ? Author Type: Physician Type: Progress Notes Filed: 10/15/2021 11:08 AM Note Text: ASSESSMENT/PLAN: 1. Meibomian gland dysfunction (MGD) of upper and lower lids of both eyes - ICD9: 373.00, ICD10: H02.88A, H02.88B (primary diagnosis) 2. Punctate keratitis of both eyes - ICD9: 370.21, ICD10: H16.143 3. Dry eye syndrome of both eyes - ICD9: 375.15, ICD10: H04.123 Current Ophthalmic Meds erythromycin (ROMYCIN) 5 mg/gram (0.5 %) ophthalmic ointment Use 1 application in both eyes daily at bedtime. Rub onto lashes / lids loteprednol etabonate (EYSUVIS) 0.25 % drps Use 1 Drop in both eyes twice daily. Doxycycline 100 mg by mouth daily for 2 weeks Systane Complete solution instill 1 drop 3 times daily Both Eyes. Recommended Delfina mask or warm compresses at bedtime 4. Pseudophakia of both eyes - ICD9: V43.1, ICD10: Z96.1 Intraocular lens implant in good position Both Eyes. Recommended patient see Dr. Araseli Munoz for refraction and glasses. 5. Essential hypertension - ICD9: 401.9, ICD10: I10 Continue to monitor with primary care physician. 6. Graves' disease - ICD9: 242.00, ICD10: E05.00 Continue to monitor with primary care physician. Rich Guajardo MD I have confirmed and edited as necessary the relevant ophthalmic history, review of systems, surgical history, and ophthalmological examination findings as obtained by the ophthalmic technical staff. I have seen and examined Vazquez Musa. I have discussed the examination findings, diagnosis, and treatment options with Vazquez Musa and/or his family. I have also reviewed and agree with the assessment and plan as stated above and agree with all its relevant components. I gave the patient the opportunity to ask questions about the findings, diagnosis, and treatment options. [facility] 10-02-2021 History of Present illness Narrative Images from the original note were not included. RHEUMATOLOGY NEW PATIENT VISIT Patients name: Vazquez Musa : 1960 Today's date: 10/02/2021 Reason for visit: Referred by his BATCH UNIT TREATER Caren Reyes for Localized swelling of finger of both hands,Pain in finger of both hands, Stiffness of finger joint, unspecified laterality Investigations thus far: NIL Disease summary: DJD Status: Serology: +ve RF -ve CCP,SYLVAIN, Radiology: Current Meds: Pain control: Prior Meds: HPC: This is a 61 y.o. male with a pmhx of hypertension, hyperlipidemia, hyperthyroidism(on Tapazole), depression/anxiety, DJD s/p R shoulder replacement and spine surgery, remote h/o prostate cancer who presents today with complaints of bilateral hand discomfort. Most notably at both middle fingers he feels dislocate at the level of his MCP, occasional locking. No complaints of redness or swelling or symptoms indicative of synovitis. He has some difficulties making a fist due to stiffness across PIP joints. He has had significant issues with degenerative arthritis. He has undergone right shoulder replacement 2011 which has been very successful. He also had significant C-spine surgery due to degenerative arthritis. Of note he is a smoker and does not take any vitamin D. He does not complain of any knee pain. Last year had left-sided carpal tunnel surgery as well as left ulnar nerve release. Significant improvements in left upper extremity discomfort since he had the surgery. However he does complain of occasional nerve pain in the elbow if he is unfortunate enough to find his elbow. Otherwise he does not complain of any redness or swelling. Bilateral upper extremity EMG November 2020 Impression: This is an abnormal EMG. There is electrodiagnostic evidence of a bilateral median nerve entrapment at the wrist with some sensory axonal damage on the right side. There is also electrodiagnostic evidence of a left ulnar nerve entrapment across the elbow without any axonal damage. There is NO electrodiagnostic evidence of bilateral cervical radiculopathy, brachial plexopathy or right ulnar neuropathy at this time. Prior Rheum appts: 2018 OSH Interim: I have reviewed the patient's medical history in detail and updated the computerized patient record. Past Medical History: Diagnosis Date Cancer (HCC) prostate 2010 Disease of thyroid gland hyper Fractures Hypertension om medication Psychiatric disorder PTSD Past Surgical History: Procedure Laterality Date CARPAL TUNNEL RELEASE OPEN Left 12/20/2020 Procedure: RELEASE CARPAL TUNNEL; Surgeon: Sameear Coreas MD; Location: [facility]; Service: Orthopedic CATARACT EXTRACTION, BILATERAL 2011 cervical Bilateral [address] Monica Mancilla HARDWARE REMOVAL SHOULDER Left 12/20/2020 Procedure: HARDWARE REMOVAL LEFT SHOULDER; Surgeon: Sameera Coreas MD; Location: [facility]; Service: Orthopedic KIDNEY SURGERY Right 1969 valve duct problems when younger KNEE CARTILAGE SURGERY Left 2017 MANDIBLE SURGERY 2012 had dental work done dr malina stahl jaw ORIF CLAVICLE Left 10/22/2019 Procedure: OPEN REDUCTION INTERNAL FIXATION LEFT CLAVICLE; Surgeon: Sameera Coreas MD; Location: [facility]; Service: Orthopedic PROSTATECTOMY 2010 had cancer RELEASE CUBITAL TUNNEL Left 12/20/2020 Procedure: LEFT CUBITAL TUNNEL; Surgeon: Sameera Coreas MD; Location: [facility]; Service: Orthopedic SHOULDER SURGERY Right 2010 right shoulder replacement Social History Tobacco Use Smoking status: Former Smoker Types: Cigars Smokeless tobacco: Former User Vaping Use Vaping Use: Never used Substance Use Topics Alcohol use: No Alcohol/week: 0.0 standard drinks Drug use: No Family History Adopted: Yes Allergies Allergen Reactions Amlodipine Other (See Comments) Patient state it make him unbalanced and dizzy No outpatient medications have been marked as taking for the 10/02/21 encounter (Appointment) with Kimi Brar MD. Review of Systems: General Constitutional: Denied fevers, chills, anorexia, weight loss, or night sweats Eyes: denied blurry vision, no dry eyes, no RP ENT: denied nasal drainage, sinus pressure, nasal ulcers Mouth: denied oral ulcers, dry mouth Lymphatics: no new adenopathy in cervical, supraclavicular, axillary, inguinal regions Respiratory: no cough, SOB CV: denied palpitations, chest pain/pressure, PND, orthopnea. GI: denied abd pain, n/v/d, constipation, melena. : denied dysuria, urgency, frequency or hematuria. Skin: no rashes or lesions Musculoskeletal: as per HPI Hematologic/lmmunologic: no adenopathy, bleeding, easy bruisiality or recurrent infection. Neurology: Denied new headaches, speech/balance/coordination problems. Denied new focal numbness or weakness of extremities Psych: denied anxiety, depression or mood swings A 10 point review of systems was completed. Physical Exam: BP 147/85 Pulse 76 Wt 78 kg (172 lb) BMI 25.40 kg/m Gen: NAD, resting comfortably,Alert, cooperative, no distress, appears stated age HEENT: NCAT, no temporal wasting, EOMI, perrl, anicteric sclerae, mmm, no op lesions Neck: supple, no thyromegaly or LAD, no bruits Lymphatics: no cervical, axillary, or inguinal adenopathy Chest: Good a/e b/l, no added sounds, no respiratory distress CV: RRR, no m/r/g, normal S1, S2 Abd: soft, nontender, nondistended, +BS, no hepatosplenomegaly Ext: no clubbing, cyanosis or edema MSK: No synovitis of the MCPs or PIPs, slight stiffness of the PIP joints however no noted synovitis, bilateral middle trigger finger R>L. Crepitus of the knees no effusion or warmth. Skin: no rashes or lesions Neuro: no focal deficits, moves all four extremities Psych: Mood and affect appropriate DATA: I have reviewed lab work and imaging. Labs:reviewed. Imaging: reviewed. Health Maintenance Due Topic Date Due Pneumococcal Vaccine: Ped or At-Risk (1 of 4 - PCV13) Never done HIV Screening Never done Hepatitis C Screening Never done Colorectal Cancer Screening Never done Zoster Vaccines (1 of 2) Never done PSA Level 08/12/2020 Assessment & Plan Arthralgia of both hands -suspect his complaints are secondary to degenerative arthritis however considering he has risk factors including heavy smoking history and previously significantly positive rheumatoid factor we will recheck his rheumatoid factor and obtain hand x-rays. -If any evidence of inflammatory arthritis or erosive OA we will consider trial of Plaquenil. - Plan: XR Hands Bilateral Ball Catchers 2 Views, Rheumatoid factor, CCP Antibody, Sedimentation Rate, C-reactive protein Trigger middle finger of right hand - Plan: He declined injections Trigger middle finger of left hand - Plan: He declined injections Low serum vitamin D - Plan: Vitamin D, Total, 25-OH Tobacco abuse - Plan: Counseled Fibromyalgia -defer to his nurse practitioner - I counseled the patient in great details about the diagnosis of fibromyalgia, its course and that's it is not a deforming or life threatening condition. I encouraged patient to get involved in aerobic exercise on daily basis, especially low impact exercise such as aquatic exercise, walking, swimming or stationary cycling. I explained importance of addressing factors that may aggravate fibromyalgia (taking care of mental health: Anxiety/depression/PTSD, sleep hygiene: Addressing possible undiagnosed MARILYN/restful sleep,/sleep hygiene obesity: Maintaining a healthy BMI). Also advised patient to take up meditation and mindfulness as mindfulness-based therapies may alleviate fibromyalgia-related outcomes through multiple neural, psychological, and physiological processes. The patient indicates understanding of these issues and agrees with the plan. Return to clinic in 3 month(s) Telehealth appointments ok. Kimi Brar MD Correctional Probation Officer Social Work Coordinator Note: To expedite correspondence this note was generated by [employer] voice recognition software. Some grammatical or spelling errors may occur using the system. . documented in this encounter [facility] 10-01-2021 Note HNO ID: [id number] Author: Rich Guajardo MD Service: ? Author Type: Physician Type: Progress Notes Filed: 10/01/2021 9:33 AM Note Text: ASSESSMENT/PLAN: 1. Meibomian gland dysfunction (MGD) of upper and lower lids of both eyes - ICD9: 373.00, ICD10: H02.88A, H02.88B (primary diagnosis) 2. Punctate keratitis of both eyes - ICD9: 370.21, ICD10: H16.143 3. Dry eye syndrome of both eyes - ICD9: 375.15, ICD10: H04.123 Current Ophthalmic Meds erythromycin (ROMYCIN) 5 mg/gram (0.5 %) ophthalmic ointment Use 1 application in both eyes daily at bedtime. Rub onto lashes / lids loteprednol etabonate (EYSUVIS) 0.25 % drps Use 1 Drop in both eyes four times daily. Start: Systane Complete solution instill 1 drop 3 times daily Both Eyes. 4. Pseudophakia of both eyes - ICD9: V43.1, ICD10: Z96.1 Intraocular lens implant in good position Both Eyes. Recommended patient see Dr. Araseli Munoz for refraction and glasses. 5. Essential hypertension - ICD9: 401.9, ICD10: I10 Continue to monitor with primary care physician. 6. Graves' disease - ICD9: 242.00, ICD10: E05.00 Continue to monitor with primary care physician. Rich Guajardo MD I have confirmed and edited as necessary the relevant ophthalmic history, review of systems, surgical history, and ophthalmological examination findings as obtained by the ophthalmic technical staff. I have seen and examined Vazquez Musa. I have discussed the examination findings, diagnosis, and treatment options with Vazquez Musa and/or his family. I have also reviewed and agree with the assessment and plan as stated above and agree with all its relevant components. I gave the patient the opportunity to ask questions about the findings, diagnosis, and treatment options. [facility] 01-12-2021 History of Present illness Narrative Dictation on: 01/12/2021 1:51 PM by: SAMEERA COREAS [[id number]] documented in this encounter [facility] 01-03-2021 History of Present illness Narrative Dictation on: 01/03/2021 5:39 PM by: SAMEERA COREAS [[email or web address]] documented in this encounter [facility] 12-20-2020 Hospital Discharge instructions Tessa Batres RN - 12/20/2020 10:37 AM EDT GENERAL POST-OPERATIVE PATIENT INSTRUCTIONS ANESTHESIA PRECAUTIONS: A responsible adult must stay with you for at least 24 hours after surgery. You may feel light headed,, dizzy, or nauseated during this time. Do not operate a vehicle (car, bike, motorcycle, back pad inspector) machinery or power tools. Do not make any important decisions or drink any alcoholic beverages for 24 hours. Children should remain quiet today. No riding of bicycles, motorcycles, skateboards, playing on swings etc. Drink plenty of fluids today. Eat light, small, frequent meals today. Resume regular diet tomorrow. FOLLOW-UP: Please make an appointment with your physician for follow-up. Call your physician immediately if you have any fevers greater than 101, drainage from your wound that is not clear or looks infected, persistent bleeding, increasing abdominal pain, problems urinating, or persistent nausea/vomiting. DIET: You may eat any foods that you can tolerate. It is a good idea to eat a high fiber diet and take in plenty of fluids to prevent constipation. If you do become constipated you may want to take a mild laxative or take ducolax tablets on a daily basis until your bowel habits are regular. Constipation can be very uncomfortable, along with straining, after recent surgery. ACTIVITY: You are encouraged to cough and deep breathe or use your incentive spirometer if you were given one, every 15-30 minutes when awake. This will help prevent respiratory complications and low grade fevers post-operatively if you had a general anesthetic. You are encouraged to walk and engage in light activity for the next two weeks. MEDICATIONS: Try to take narcotic medications and anti-inflammatory medications, such as ibuprofen, naprosyn, etc., with food. This will minimize stomach upset from the medication. Should you develop nausea and vomiting from the pain medication, or develop a rash, please discontinue the medication and contact your physician. You should not drive, make important decisions, or operate machinery when taking narcotic pain medication. Do not take tylenol or tylenol products with narcotic medications. QUESTIONS: Please feel free to call your physician or the hospital tempering machine operator if you have any questions, and they will be glad to assist you. 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, subsequent encounter [S42.032K] * Carpal tunnel syndrome of left wrist [G56.02] * Cubital tunnel syndrome on left [G56.22] Surgeon(s) and Role: * Sameera Coreas MD - Primary Anesthesiologist: Debbie Estevez MD Anesthesiologist Fuse Coiler: ZANDRA Agustin Scrub Person: Lisa Singh LPN Warehouser Orientee: Simona Waller RN Warehouser Preceptor: Tori Rubio RN Scrub Person Assist: ST Jonnie Operative findings: see op note Intra and immediate post-operative complications: none Type of anesthesia used: General Estimated blood loss: 25 mL Estimated urine output: 0 mL Specimen(s): * No specimens in log * Implant(s): Implant Name Type Inv. Item Serial No. Director Media Lot No. LRB No. Used Action PLATE 70MM LT SHORT DSTL THIRD CLAVICLE FRACTURE SS - [id number] PLATE 70MM LT SHORT DSTL THIRD CLAVICLE FRACTURE SS ARTHREX IN Left 1 Explanted SCREW 3.5 X 20MM SS LOW PROFILE TM JAMAAL - [id number] SCREW 3.5 X 20MM SS LOW PROFILE TM JAMAAL ARTHREX IN Left 2 Explanted SCREW 3.5 X 22MM SS LOW PROFILE TM JAMAAL - [id number] SCREW 3.5 X 22MM SS LOW PROFILE TM JAMAAL ARTHREX IN Left 1 Explanted SCREW 2.7 X 22MM SS LOCK LOW PROFILE - [id number] SCREW 2.7 X 22MM SS LOCK LOW PROFILE ARTHREX IN Left 1 Explanted SCREW 2.7 X 24MM SS LOCK LOW PROFILE - [id number] SCREW 2.7 X 24MM SS LOCK LOW PROFILE ARTHREX IN Left 3 Explanted SCREW 2.7 X 18MM SS LOCK LOW PROFILE - [id number] SCREW 2.7 X 18MM SS LOCK LOW PROFILE ARTHREX IN Left 1 Explanted Drain(s): * No LDAs found * Wound(s): Wound 12/20/20 Surgical Wound Arm Left (Active) Dressing Status Clean;Dry;Intact 12/20/20 0957 Drainage Amount None 12/20/20 0957 Wound 12/20/20 Surgical Wound Wrist Left (Active) Dressing Status Clean;Dry;Intact 12/20/20 0957 Drainage Amount None 12/20/20 0957 Wound 12/20/20 Surgical Wound Cervical Anterior Left (Active) Dressing Status Clean;Dry;Intact 12/20/20 0957 Drainage Amount None 12/20/20 0957 Sameera Coreas MD 12/20/2020 10:27 AM PREOPERATIVE DIAGNOSES 1.Symptomatic hardware, left shoulder. 2.Left carpal tunnel. 3.Left cubital tunnel. POSTOPERATIVE DIAGNOSES 1.Symptomatic hardware, left shoulder. 2.Left carpal tunnel. 3.Left cubital tunnel. PROCEDURES 1.Hardware removal, left shoulder. 2.Left cubital tunnel release in situ. 3.Left carpal tunnel release. ANESTHESIA General anesthetic. COMPLICATIONS No intraoperative complications. SPECIMENS None. ESTIMATED BLOOD LOSS 25 cc. HISTORY Vazquez is a 60-year-old gentleman with previous ORIF of his lateral 1/3 clavicle fracture nonunion. Fracture has healed. He now presents for surgical intervention. The gentleman was explained all the risks and complications of surgery including, but not limited to, the risks of infection, bleeding, neurologic or vascular injury, possibility of deep venous thrombosis, pulmonary embolism, myocardial infarction, stroke, or even with surgery. Explained the possibilities of continued pain, stiffness, loss of range of motion, as well as the need for future surgery. Given all the options of anesthetic per the Anesthesia team and at this time elected for a general anesthetic. PROCEDURE IN DETAIL Patient was met in the preoperative holding area where the left shoulder as well as the left cubital tunnel as well as the left carpal tunnel were all 3 confirmed to be the appropriate sites and marked by myself. The patient was then taken to the operative suite, given preoperative Kefzol per protocol as well as a general anesthetic, placed in the supine position. Left shoulder was then sterilely prepped and draped using a ChloraPrep solution as well as InteguSeal. After sterilization of the left shoulder, we did our final time-out to confirm that the left shoulder, left cubital, and left carpal tunnel were the appropriate sites and we sterilized the entire arm. At this time, we then went ahead and made an incision through the area of the previous skin incision. At this time, after making the incision through the previous skin incision, we identified the Arthrex plate. The plate was removed in its entirety. At this time, we then went ahead and did irrigation of the left shoulder wound. We used 0 Vicryl suture to close the clavipectoral fascia. We used 2-0 Vicryl and skin danny were used on skin. Of note, you will note that the portion of the TightRope in the inferior portion of the coracoid was left intact. After the shoulder wound was completely closed, we then went ahead and proceeded forward with making an incision 5 cm proximal to the medial epicondyle and 5 cm distal to the medial epicondyle and at this time, the cubital tunnel was identified. The ulnar nerve was identified and released from 5 cm proximal to the first motor branch distal. After complete freedom of the ulnar nerve in the cubital tunnel, I then went ahead and irrigated the wound with antibiotic-impregnated solution, proceeded forward with closing the wound with 2-0 Vicryl and skin danny. We then went to the carpal tunnel, proceeded with a skin incision, divided the palmar fascia, identified the carpal ligament, and released the carpal ligament from the proximal wrist crease to the superficial palmar arch. After complete release of the median nerve and the motor branch to the thenar, tourniquet was let down. Bleeders were coagulated. Wound was irrigated and closed with 4-0 black nylon suture. Patient was extubated and taken to PACU without intraoperative complication. D 12/20/2020 10:31 [id number] 12/20/2020 10:51 MCB/MODL documented in this encounter [facility] 12-20-2020 History and physical note INTERVAL HISTORY AND PHYSICAL Patient Name: Vazquez Musa Admit Date: 4201002 MR #: [id number] : 1960 The H&P has been reviewed and the patient has been examined. I concur with the findings of the H&P. There are no significant changes. It is appropriate to proceed with the planned procedure. Sameera Coreas MD 12/20/2020 7:53 AM Vazquez Musa comes today for followup of his left upper extremity and his preop visit. He cannot take the night pain, morning pain, numbness, and tingling. He has numbness and tingling in an ulnar nerve distribution and a median nerve distribution. We are planning on removing the hardware from his left shoulder that is symptomatic. His fracture is healed, but now the numbness and tingling have become severe. He said he is tired of it and he said he wants it all fixed if at all possible. He had an EMG performed, which shows bilateral median nerve entrapment at the wrist as well as left ulnar neuropathy. PAST MEDICAL HISTORY History of prostate cancer, hypothyroidism, hypertension, PTSD. PAST SURGICAL HISTORY He has had bilateral cataracts, cervical spine surgery, left knee arthroscopy, oral surgery, ORIF left clavicle, prostatectomy, right shoulder replacement. FAMILY HISTORY Adopted. SOCIAL HISTORY He is . He is a former smoker. Drinks on a rare social basis. MEDICATIONS Include albuterol, Symbicort, Cymbalta, Lexapro, Flonase, Neurontin, Advil, Prinivil, Topamax, Mirapex, Sudafed, and Detrol. He is no longer taking steroids. ALLERGIES Amlodipine. REVIEW OF SYSTEMS Left upper extremity numbness, weakness in the ulnar and median nerve. Tenderness over the lateral clavicle. PHYSICAL EXAM General: He is awake, alert, oriented x3. Ambulates without assistive devices. Chest: Clear. Heart: Regular rate and rhythm. Abdomen: Benign. Neck: He has no carotid bruits noted. Extremities: Left upper extremity has a positive Tinel's and Phalen's sign at the left wrist. Positive Tinel's at the left elbow. Full range of motion of left hand, wrist, elbow, and left shoulder. Left shoulder shows prominence of the lateral clavicle with tenderness to palpation over the skin. IMPRESSION 1.Symptomatic hardware, left shoulder. 2.Cubital tunnel syndrome, left elbow. 3.Carpal tunnel syndrome, left wrist. PLAN We will proceed forward with hardware removal of the left shoulder, cubital tunnel release of the left elbow, and carpal tunnel release of the left wrist. All risks and complications were discussed. I have discussed all the treatment options with the patient. The patient was part of the entire decision-making process. I discussed with the patient while we practice appropriate precautions consistent with prevailing medical standards, any contact with any person in any setting at this time presents a risk of transmission and contraction of COVID-19. The patient was also informed that COVID-19 testing within 72 hours of the procedure will be required. The patient wished to proceed. Mental status was assessed. Narcotic review was performed. The patient's last listed medication was gabapentin on 11/17/2020. 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- Primary Closed displaced fracture of acromial end of left clavicle with nonunion, subsequent encounter [facility]* Diagnosis Closed displaced fracture of acromial end of left clavicle with nonunion, subsequent encounter- Primary [facility]* Diagnosis Closed displaced fracture of acromial end of left clavicle with nonunion, subsequent encounter- Primary [facility]* Diagnosis Arthralgia of both hands- Primary Localized swelling of finger of both hands Pain in finger of both hands Stiffness of finger joint, unspecified laterality Trigger middle finger of right hand Trigger middle finger of left hand Low serum vitamin D Adult osteomalacia due to malnutrition Osteomalacia, unspecified Tobacco abuse Tobacco use disorder Fibromyalgia Unspecified myalgia and myositis [facility] Diagnosis Recurrent prostate cancer (HCC)- Primary Elevated PSA Elevated prostate specific antigen (PSA) History of prostate cancer Personal history of malignant neoplasm of prostate [facility] Diagnosis Recurrent prostate cancer (HCC) [facility] Diagnosis Recurrent prostate cancer (HCC)- Primary [facility] Diagnosis Hyperthyroidism- Primary Thyrotoxicosis without mention of goiter or other cause, without mention of thyrotoxic crisis or storm [facility] Diagnosis Elevated PSA- Primary Elevated prostate specific antigen (PSA) Recurrent prostate cancer (HCC) [facility] Diagnosis Hyperthyroidism- Primary Thyrotoxicosis without mention of goiter or other cause, without mention of thyrotoxic crisis or storm [facility] Diagnosis Hyperthyroidism- Primary Thyrotoxicosis without mention of goiter or other cause, without mention of thyrotoxic crisis or storm [facility] Diagnosis Recurrent prostate cancer (HCC)- Primary [facility] Diagnosis Recurrent prostate cancer (HCC)- Primary [facility] Diagnosis Recurrent prostate cancer (HCC)- Primary Elevated PSA Elevated prostate specific antigen (PSA) [facility] Left wrist pain- Primary Pain in joint, forearm [facility] Diagnosis Low back pain with right-sided sciatica, unspecified back pain laterality, unspecified chronicity- Primary Neck pain Cervicalgia [facility] Cervicalgia- Primary [facility] Diagnosis Recurrent prostate cancer (HCC)- Primary Elevated PSA Elevated prostate specific antigen (PSA) [facility]* Diagnosis Recurrent prostate cancer (HCC)- Primary [facility]* Diagnosis Cervicalgia- Primary [facility] Diagnosis Cervicalgia- Primary [facility]* Diagnosis Cervicalgia- Primary [facility]* Diagnosis Low back pain with right-sided sciatica, unspecified back pain laterality, unspecified chronicity- Primary Thoracic back pain, unspecified back pain laterality, unspecified chronicity [facility]* Diagnosis Closed wedge fracture of thoracic vertebra with routine healing, unspecified thoracic vertebral level, subsequent encounter- Primary [facility]* Diagnosis Subclinical hyperthyroidism- Primary Thyrotoxicosis without mention of goiter or other cause, without mention of thyrotoxic crisis or storm [facility]* Diagnosis Prostate cancer (HCC)- Primary Malignant neoplasm of prostate [facility]* Diagnosis Prostate cancer (HCC)- Primary Malignant neoplasm of prostate [facility]* Diagnosis Recurrent prostate cancer (HCC)- Primary Prostate cancer (HCC) Malignant neoplasm of prostate Hyperthyroidism Thyrotoxicosis without mention of goiter or other cause, without mention of thyrotoxic crisis or storm [facility]* Diagnosis Lumbar radiculopathy- Primary Thoracic or lumbosacral neuritis or radiculitis, unspecified Hemangioma of spine Hemangioma of other sites [facility] Lumbar back pain Lumbago [facility] Diagnosis Subclinical hyperthyroidism Thyrotoxicosis without mention of goiter or other cause, without mention of thyrotoxic crisis or storm [facility]* Diagnosis Recurrent prostate cancer (HCC)- Primary Prostate cancer (HCC) Malignant neoplasm of prostate Hyperthyroidism Thyrotoxicosis without mention of goiter or other cause, without mention of thyrotoxic crisis or storm [facility]* Diagnosis 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 History of fracture Personal history of traumatic fracture [facility] Diagnosis 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- Primary Idiopathic progressive polyneuropathy [facility]* Diagnosis 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- Primary Idiopathic progressive polyneuropathy [facility]* Diagnosis 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- Primary Idiopathic progressive polyneuropathy [facility]* Diagnosis Hemangioma of spine- Primary Hemangioma of other sites Lumbar radiculopathy Thoracic or lumbosacral neuritis or radiculitis, unspecified [facility] Diagnosis Musculoskeletal symptom- Primary Other musculoskeletal symptoms referable to limbs [facility]* Diagnosis Subclinical hyperthyroidism Thyrotoxicosis without mention of goiter or other cause, without mention of thyrotoxic crisis or storm [facility]* Diagnosis Recurrent prostate cancer (HCC)- Primary Prostate cancer (HCC) Malignant neoplasm of prostate [facility]* Diagnosis 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- Primary Idiopathic progressive polyneuropathy [facility]* Diagnosis 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- Primary Idiopathic progressive polyneuropathy [facility]* Diagnosis Prostate cancer (HCC) Malignant neoplasm of prostate [facility]* Diagnosis 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- Primary Idiopathic progressive polyneuropathy [facility]* Diagnosis Thoracic radiculopathy- Primary Thoracic or lumbosacral neuritis or radiculitis, unspecified Musculoskeletal symptom Other musculoskeletal symptoms referable to limbs DDD (degenerative disc disease), thoracic Degeneration of thoracic or thoracolumbar intervertebral disc documented in this encounter [facility] for [facility] (narrative)* Consultation (Routine) - Patient to Arrange Specialty Diagnoses / Procedures Referred By Ronna tierney Referred To Contact Multispecialty Diagnoses Lumbar radiculopathy Daljit Bloom MD [address] [place] [id number] Referral ID Status Reason Start Date Expiration Date V isits Requested Visits Authorized [id number] Patient to Arrange 06/18/2023 07/12/2024 1 1 * Adjunctive Therapy (Routine) - New Request Specialty Diagnoses / Procedures Referred By Ronna tierney Referred To Contact Physical Therapy Diagnoses Lumbar radiculopathy Daljit Bloom MD [address] [place] [address] Referral ID Status Reason Start Date Expiration Date V isits Requested Visits Authorized [id number] New Request 06/18/2023 07/12/2024 1 1 Scheduling Instructions [facility] [address] [facility], 2nd [place] [address] Fax [facility] (Neck and Back Therapy) [address] [place] [address] FAX [facility] [address] [place] [address] FAX Outpatient Rehabilitation [facility] [place] [address] [facility], [address] [place] [address] FAX [facility] [address] [address] FAX [facility] [address] [facility], [address] [place] [address] FAX [facility] [address] [place] [address] [phone] FAX Outpatient Rehabilitation Outpatient [facility] [address], [address] [place] [address] FAX [facility] [address] [facility], [address] [place] [address] FAX [facility] [address], Room: B-80 [place] [address] [phone] FAX [facility] [address] [facility] [facility] [place] [address] FAX [facility] [address] [place] [address] [phone] FAX [facility] [place] [address], [address] [place] [address] FAX [facility] [address] [facility], [address] [place] [address] FAX Outpatient Rehabilitation [facility] [address], [address] [place] [address] [phone] FAX [facility] [address] [facility], [address] [place] [address] FAX [facility] [place] [address] [place] [address] [phone] FAX [facility] [address] [place] [address] [phone] FAX Outpatient Rehabilitation Outpatient [facility] [address], [address] [place] [address] [phone] FAX [facility] [place] [address] [place] [address] [phone] FAX Outpatient Care [address] [address] [phone] FAX [facility], Room [address] [place] [address] ) [phone] FAX * MRI/CAT Scan (Routine) - New Request Specialty Diagnoses / Procedures Referred By Contac t Referred To Contact Diagnoses Hemangioma of spine Lumbar radiculopathy Procedures MRI SPINE THORACIC WITHOUT CONTRAST [place] MRI, DORSAL SPINE Daljit Bloom MD [address] [place] [address] Referral ID Status Reason Start Date Expiration Date V isits Requested Visits Authorized [id number] New Request 06/18/2023 07/12/2024 1 1 [facility] Instructions * Patient Instructions - Katy Gonzalez MD - 01/12/2018 12:29 PM EDT During your follow up visit today, we discussed the following : - You most likely has a condition called Small Fiber Sensory Neuropathy which causes burning type of pain and abnormal sensations in the feet and hands among other symptoms such as dizziness and fainting. - Please discontinue amlodipine given that it has led to episodes of dizziness and near-fainting. - Your gabapentin will be increased from 600 mg three times daily to 800 mg three times daily - A referral to a neuromuscular specialist is recommended for consideration of skin biopsy and further testing if indicated. You had see Dr Doron Gilman. We appreciate you choosing us for your continued care. in this encounter* Patient Instructions - Katy Gonzalez MD - 11/03/2017 10:10 AM EST During your follow up visit today, we discussed the following : - The diagnosis of Raynaud's phenomenon which causes the small blood vessel in the tips of your toes and fingers to constrict more than the normal response and cause the cold discomfort and whitish discoloration. - We will be performing blood work to investigate for causes of nerve and muscle dysfunction. - For the Raynaud's condition, we recommend dedicated winter gloves with Rankin Wool lining to keepyour fingers as warm as possible. Avoid long exposure to cold environment - We are starting you on a low dose of a blood pressure medication called Amlodipine that has been shown to help improve circulation to the fingers and toes and to alleviate Raynaud's phenomenon. -I will call you with the results of the testing as they become available. We will call you for a follow up visit as well once Paty schedule is set. We appreciate you choosing us for your continued care. in this encounter Assessments Diagnosis Small fiber neuropathy - Roula xavi Glucose intolerance Intestinal disaccharidase deficiencies and disaccharide malabsorption Idiopathic small and large f iber sensory neuropathy Idiopathic progressive polyneuropathy Restless leg syndrome Restless legs syndrome (RLS) Diagnosis Lack of sensation Disturbance of skin sensation Chronic pain syndrome Idiopathic peripheral neurop athy Unspecified hereditary and idiopathic peripheral neuropathy Dizziness and giddiness Idiopathic small and large f iber sensory neuropathy Idiopathic progressive polyneuropathy Raynaud's phenomenon without gangrene Restless leg syndrome Restless legs syndrome (RLS) Encounter for screening for diabetes mellitus Diagnosis Displaced fracture of lateral end of left clavicle, initial encounter for closed fracture- Primary Diagnosis Old peripheral tear of medial meniscus of left knee Closed displaced fracture of acromial end of left clavicle with nonunion, subsequent encounter Chronic left shoulder pain Pain in joint, shoulder region Diagnosis Closed displaced fracture of acromial end of left clavicle with nonunion, subsequent encounter Diagnosis Acute meniscal tear of left knee, subsequent encounter Diagnosis 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 Diagnosis Closed displaced fracture of acromial end of left clavicle with nonunion, subsequent encounter Diagnosis Closed displaced fracture of acromial end of left clavicle with nonunion, subsequent encounter Diagnosis Closed displaced fracture of acromial end of left clavicle with nonunion, subsequent encounter- Primary Diagnosis Old peripheral tear of medial meniscus of left knee Diagnosis Acute pain of right knee- Primary Chronic pain of left knee Status post arthroscopic partial medial meniscectomy Diagnosis Closed displaced fracture of acromial end of left clavicle with nonunion, subsequent encounter 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 Diagnosis Bilateral carpal tunnel syndrome- Primary Carpal tunnel syndrome Diagnosis Closed displaced fracture of acromial end of left clavicle with nonunion, subsequent encounter- Primary History of COPD- Primary Cough Wheezing Chest congestion Other symptoms involving respiratory system and chest Diagnosis Laceration of scalp, initial encounter- Primary Diagnosis Closed displaced fracture of acromial end of left clavicle with nonunion, subsequent encounter- Primary Exposure to SARS-associated coronavirus 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- Primary Diagnosis 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- Primary Ulnar neuropathy at elbow, left- Primary Bilateral carpal tunnel syndrome Carpal tunnel syndrome Closed displaced fracture of acromial end of left clavicle with nonunion, subsequent encounter Diagnosis 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- Primary Closed displaced fracture of acromial end of left clavicle with nonunion, subsequent encounter- Primary Closed displaced fracture of acromial end of left clavicle with nonunion, subsequent encounter Summary Purpose Family History No Family History Records FoundUnknown Family Member Name Dates Details No pertinent family history: Mother, Father(V49.89, Z78.9) Status:Active Unknown Family Member Name Dates Details No pertinent family history: Mother, Father(V49.89, Z78.9) Status:Active Unknown Family Member Name Dates Details No pertinent family history: Mother, Father(V49.89, Z78.9) Status:Active Advance Directives No Advanced Directives Records FoundDocuments on File Type Date Recorded 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 Expl anation Advance Directives and Livin g Will 01/15/2019 5:21 AM Documents on File Type Date Recorded 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 Engineer Expl anation Advance Directives and Livin g Will 09/27/2019 10:39 AM Documents on File Type Date Recorded 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 Engineer Expl anation Advance Directives and Livin g Will 09/27/2019 10:39 AM Documents on File Type Date Recorded 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 Engineer Expl anation Advance Directives and Livin g Will 10/22/2019 7:53 AM Documents on File Type Date Recorded 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 Engineer Expl anation Advance Directives and Livin g Will 06/21/2020 7:53 AM not in sorian Documents on File Type Date Recorded 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 Engineer Expl anation Advance Directives and Livin g Will 10/22/2019 7:53 AM Documents on File Type Date Recorded 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 Engineer Expl anation Advance Directives and Livin g Will 06/21/2020 7:53 AM not in sorian Documents on File Type Date Recorded 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 Engineer Expl anation Advance Directives and Livin g Will 10/26/2020 2:22 PM not in sorian Documents on File Type Date Recorded 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 Engineer Expl anation Advance Directives and Livin g Will 11/09/2020 10:30 AM not in sorian Documents on File Type Date Recorded 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 Engineer Expl anation Advance Directives and Livin g Will 11/09/2020 10:30 AM not in sorian Documents on File Type Date Recorded 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 Engineer Expl anation Advance Directives and Livin g Will 12/20/2020 7:13 AM not in sorian Documents on File Type Date Recorded 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 Engineer Expl anation Advance Directives and Livin g Will 12/20/2020 7:13 AM not in sorian Documents on File Type Date Recorded 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 Engineer Expl anation Advance Directives and Livin g Will 04/06/2021 3:30 PM not in sorian Documents on File Type Date Recorded 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 Engineer Expl anation Advance Directives and Livin g Will 10/02/2021 9:52 AM not in sorian Documents on File Type Date Recorded 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 Engineer Expl anation Advance Directives and Livin g Will 10/02/2021 9:52 AM not in sorian Latest Code Status on File Code Status Date Activated Date Inactivated Comments Full Code-Unverified 08/30/2011 5:45 PM 08/31/2011 3:0 7 PM Latest Code Status on File Code Status Date Activated Date Inactivated Comments Full Code-Unverified 08/30/2011 5:45 PM 08/31/2011 3:0 7 PM Discharge Instructions * Instructions* Tayler Wright PA-C - 01/15/2019 Sling until further instructed Do not sleep in sling Ice * Attachments The following attachments cannot be sent through Care Everywhere. * Collarbone Fracture (Uzbek) documented in this encounter* Instructions* Bibi Mauricio RN - 10/22/2019 GENERAL POST-OPERATIVE PATIENT INSTRUCTIONS ANESTHESIA PRECAUTIONS: A responsible adult must stay with you for at least 24 hours after surgery. You may feel light headed,, dizzy, or nauseated during this time. Do not operate a vehicle (car, bike, motorcycle, back pad inspector) machinery or power tools. Do not make any important decisions or drink any alcoholic beverages for 24 hours. Children should remain quiet today. No riding of bicycles, motorcycles, skateboards, playing on swings etc. Drink plenty of fluids today. Eat light, small, frequent meals today. Resume regular diet tomorrow. FOLLOW-UP: Please make an appointment with your physician for follow-up. Call your physician immediately if you have any fevers greater than 101, drainage from your wound that is not clear or looks infected, persistent bleeding, increasing abdominal pain, problems urinating, or persistent nausea/vomiting. DIET: You may eat any foods that you can tolerate. It is a good idea to eat a high fiber diet and take in plenty of fluids to prevent constipation. If you do become constipated you may want to take amild laxative or take ducolax tablets on a daily basis until your bowel habits are regular. Constipation can be very uncomfortable, along with straining, after recent surgery. ACTIVITY: You are encouraged to cough and deep breathe or use your incentive spirometer if you weregiven one, every 15-30 minutes when awake. This will help prevent respiratory complications and lowgrade fevers post-operatively if you had a general anesthetic. You are encouraged to walk and engage in light activity for the next two weeks. MEDICATIONS: Try to take narcotic medications and anti-inflammatory medications, such as ibuprofen,naprosyn, etc., with food. This will minimize stomach upset from the medication. Should you developnausea and vomiting from the pain medication, or develop a rash, please discontinue the medication and contact your physician. You should not drive, make important decisions, or operate machinery when taking narcotic pain medication. Do not take tylenol or tylenol products with narcotic medications. QUESTIONS: Please feel free to call your physician or the hospital tempering machine operator if you have any questions, and they will be glad to assist you.Open Reduction With Internal Fixation of a Limb: What to Expect at Home Your Recovery You can expect some pain and swelling around the cut (incision) the doctor made. This should get better within a few days after your surgery. But it is normal to have some pain for 2 to 3 weeks aftersurgery and mild pain for up to 6 weeks after surgery. How soon you can return to work and your normal routine depends on your job and how long it takes the bone to heal. For example, if you have a fractured leg and you sit at work, you may be able to goback in 1 to 2 weeks. But if your job requires you to walk or stand a lot, you will need to wait until your fracture has healed before you go back to work. This care sheet gives you a general idea about how long it will take for you to recover. But each person recovers at a different pace. Follow the steps below to get better as quickly as possible. How can you care for yourself at home? Activity Rest when you feel tired. Getting enough sleep will help you recover. Increase your activity as recommended by your doctor. Being active boosts blood flow and helps prevent pneumonia and constipation. It is usually okay to exercise other parts of your body as soon as you feel well enough. Avoid putting weight on your repaired bone until your doctor says it is okay. You will probably need to take 1 to 2 weeks off from work. It depends on the type of work you do and how you feel. Do not shower for 1 or 2 days after surgery. When you shower, keep your dressing and incisions dry.If you have a cast, tape a sheet of plastic to cover it so that it does not get wet. It may help tosit on a shower stool. Do not take a bath, swim, use a hot tub, or soak your affected limb until your incision is healed. This usually takes 1 to 2 weeks. Diet You can eat your normal diet. If your stomach is upset, try bland, low-fat foods like plain rice, broiled chicken, toast, and yogurt. Medicines Your doctor will tell you if and when you can restart your medicines. He or she will also give you instructions about taking any new medicines. If you take aspirin or some other blood thinner, ask your doctor if and when to start taking it again. Make sure that you understand exactly what your doctor wants you to do. Take pain medicines exactly as directed. ? If the doctor gave you a prescription medicine for pain, take it as prescribed. ? If you are not taking a prescription pain medicine, ask your doctor if you can take an huyx-otz-kzwkhak medicine. If you think your pain medicine is making you sick to your stomach: ? Take your medicine after meals (unless your doctor has told you not to). ? Ask your doctor for a different pain medicine. If your doctor prescribed antibiotics, take them as directed. Do not stop taking them just because you feel better. You need to take the full course of antibiotics. Incision care If you have strips of tape on the incision, leave the tape on for a week or until it falls off. If you do not have a cast, clean the incision 2 times a day after your doctor allows you to remove the bandage. Use only soap and water to clean the incision unless your doctor gives you different instructions. Don't use hydrogen peroxide or alcohol, which can slow healing. Exercise Do exercises as instructed by your doctor or physical therapist. These exercises will help keep your muscles strong and your joints flexible while your bone is healing. Wiggle your fingers or toes on the injured arm or leg often. This helps reduce swelling and stiffness. Ice and elevation Prop up the injured arm or leg on a pillow when you ice it or anytime you sit or lie down during the first 1 to 2 weeks after your surgery. Try to keep it above the level of your heart. This will help reduce swelling and pain. Other instructions If you have a cast or splint: ? Keep it dry. ? If you have a removable splint, ask your doctor if it is okay to take it off to bathe. Your doctor may want you to keep it on as much as possible. Be careful not to put the splint on too tight. ? Do not stick objects such as pencils or coat hangers in your cast or splint to scratch your skin. ? Do not put powder into your cast or splint to relieve itchy skin. ? Never cut or alter your cast or splint. Follow-up care is a nunes part of your treatment and safety. Be sure to make and go to all appointments, and call your doctor if you are having problems. It's also a good idea to know your test resultsand keep a list of the medicines you take. When should you call for help? Call 911 anytime you think you may need emergency care. For example, call if: You passed out (lost consciousness). You have severe trouble breathing. You have sudden chest pain and shortness of breath, or you cough up blood. Call your doctor now or seek immediate medical care if: You have pain that does not get better after you take pain medicine. Your fingers or toes on the injured arm or leg are cool, pale, or change color. You have tingling or numbness in your fingers or toes. You cannot move your fingers or toes. Your cast or splint feels too tight. The skin under your cast or splint is burning or stinging. You have signs of infection, such as: ? Increased pain, swelling, warmth, or redness. ? Red streaks leading from the incision. ? Pus draining from the incision. ? A fever. You have drainage or a bad smell coming from the cast or splint. You have signs of a blood clot, such as: ? Pain in your calf, back of the knee, thigh, or groin. ? Redness and swelling in your leg or groin. You have new or worse nausea or vomiting. You are too sick to your stomach to drink any fluids. You cannot keep down fluids. Watch closely for any changes in your health, and be sure to contact your doctor if: You have any problems with your cast or splint. Where can you learn more? Log into your personal health record on https://[employer] and enter S594 in the Education box to learn more about Open Reduction With Internal Fixation of a Limb: What to Expect at Home. Current as of: February 24, 2019 Content Version: 12.3 0668-4729 [employer]. Care instructions adapted under license by your healthcare professional. If you have questions about a medical condition or this instruction, always ask your healthcare professional. [employer] disclaims any warranty or liability for your use of this information. documented in this encounter* Attachments The following attachments cannot be sent through Care Everywhere. * Lacerations: [place] (Uzbek) documented in this encounter History of Present Illness * Monique Triplett MD - 09/14/2019 10:57 AM EST Mr. Musa follows up today with 2 main complaints. One is his left shoulder and the other his leftknee. At this point in time, the injection in the left knee did not help. He has a history of meniscal repair. His x-rays showed well- maintained joint spaces, but he continues with pain after the injection and would like to proceed with an MRI and possible surgical intervention. The second problem is his clavicle. He fractured his clavicle in December, was supposed to follow up with our office, but did not. States he has an underlying history of rotator cuff problems and thinks he was told that he needed a shoulder replacement at some point. He states the pain has gotten significantly worse. He isalso having some weakness and loss of muscle mass on that side. He does have a history of cervical fusion and has not seen his neurologist or neurosurgeon in some time. He states his clavicular pain has gotten significantly worse. Has difficulty sleeping. PHYSICAL EXAMINATION General: He is awake, alert, in no apparent distress. Left Knee: Has good range of motion. Normal varus and valgus straining. Negative anterior drawer. Positive Thomas sign. Well-healing incisions noted. Left Shoulder: Significant deformity noted over the distal clavicle with tenderness to palpation. He has significant tenderness over the anterior biceps region. He has decreased external range of motion secondary to pain. 2+ biceps, triceps reflexes. He does have 4/5 strength of the biceps, tricepsgrip strength on that side and of the rotator cuff musculature. IMAGING X-rays, 2 views, left shoulder reveal nonunion distal clavicle displaced fracture with mild arthritic changes of the AC joint with no acute abnormalities. 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 At this point in time he would like surgical correction. We did discuss that he needs to quit smoking. He states at this point, he is smoking an occasional cigar and he will try to quit. He also has chronic underlying rotator cuff issues. We discussed the possibility of an MRI and doing a rotator cuff repair at the same time and at this point, he is not interested in doing that. 2.Old meniscal tear left knee, recurrent. We are going to get an MRI and then discuss surgical intervention. As far as his weakness and muscle deterioration on that side, we were talking about setting up an EMG, but at this point he states that he has a neurologist and he is going to call them for followup. documented in this encounter* Kaia Almaraz LPN - 09/28/2019 2:03 PM EST MRI left knee reviewed by Dr Triplett please call our office for his recommendations. documented in this encounter* Kaia Almaraz LPN - 10/01/2019 9:06 AM EST Spoke with patient about MRI results for his left knee which Dr Triplett reviewed. Dr Triplett recommends left knee arthroscopy for a meniscus tear. Patient is agreeable to plan , but he has surgery on 10/22/[address] Coreas for his clavicle. Would like to have a few weeks after that surgery, if possible. Told patient Shana will call him in a few weeks to schedule surgery. He voices understanding. documented in this encounter* Sameera Coreas MD - 11/08/2019 8:11 AM EDT Dictation on: 11/08/2019 8:12 AM by: SAMEERA COREAS [[email or web address]] documented in this encounter* Sameera Coreas MD - 12/14/2019 8:17 AM EDT Dictation on: 12/14/2019 8:18 AM by: SAMEERA COREAS [[id number]] documented in this encounter* Sameera Coreas MD - 01/29/2020 12:47 PM EDT Dictation on: 01/29/2020 12:47 PM by: SAMEERA COREAS [[id number]] documented in this encounter* Sameera Coreas MD - 04/27/2020 7:42 AM EDT Dictation on: 04/27/2020 7:43 AM by: SAMEERA COREAS [[id number]] documented in this encounter* Monique Triplett MD - 08/17/2019 8:57 AM EST Dictation on: 08/17/2019 8:59 AM by: MONIQUE TRIPLETT [[id number]] documented in this encounter* Jess Milner, FISH PROCESSOR - 10/04/2020 10:00 AM EST [facility] [address] [facility] [address] [facility] [id number] Impression Chronic left knee pain Left Knee status post athroscopic partial medial menisectomy Acute Right knee pain Plan: The above diagnosis as well as the options for treatment were discussed with Vazquez in clinic today. Vazquez states he does not wish to proceed forward with formal physical therapy. He has an appointment scheduled with Dr. Sameera Coreas on 10/26/2020, and will follow-up with his bilateral knee pain with him at that time. Call the office sooner if signs and symptoms worsen. Vazquez Musa was agreeable to the plan and there were no learning barriers encountered. Follow-Up: Has appointment with Dr. Sameera Coreas on 10/26/2020. Subjective History: Vazquez Musa is a 60 y.o. male seen today for bilateral knee pain. He had a left knee arthroscopya few years ago by Dr. Coreas. He saw Dr. Triplett 10/18/2018 for left knee pain and was given an intraarticular steroid injection, and saw him again on 09/14/2019 and a MRI of the left knee was ordered. Current symptoms began 2 weeks ago when he slipped and fell when he was about to go up stairs, he states he landed on his knees, but is unsure of how he landed. Symptoms are located medially on the left knee and laterally on the right knee, occur intermittently, and are described as aching,burning and tight. States it feels like something is crawling and I have to look at my knee to make sure nothing is there . Pain is rated as 5/10 and is aggravated by certain movements and if he bumps his right knee. This patient has not attempted to relieve symptoms with OTCs or topicals. States he takes gabapentin for his neuropathy in his arms, legs, feet and hands . States the gabapentin does help the numbness sensation in his bilateral knees. The left knee has had the sensation of numbn ess over the medial side for years and the right knee numbness sensation just started on the lateral side after his fall 2 weeks ago. Ambulates without difficulty, states weight bearing does not increase symptoms. States he likes to keep active because it helps . States numbness is localized at the knees. After his fall 2 weeks ago, he states the first two days were bad then he began to notice improvement, the pain and sensation has continued to improve over the past two weeks. He deniesinstability with the right knee. States the left knee feels like it wants to give out and will crack if I pivot a certain way that has felt that way for years , denies increase in instability. He s tates he last saw a neurologist about 2-3 years ago and that his neuropathy was stable , he deniesany increase in symptoms since his last visit with the neurologist and states his PCP writes his prescription for gabapentin. History of restless leg syndrome. Formal physical therapy for this bilateral knee pain has not been attempted. He has had intraarticular steroid injection in the left knee in the past and states the injection did not help and he does not want injections again. Vazquez is on disability. He is a smoker. History: Past Medical History: Diagnosis Date Cancer (HCC) prostate 2010 Disease of thyroid gland hyper Fractures Hypertension om medication Psychiatric disorder PTSD Past Surgical History: Procedure Laterality Date CATARACT EXTRACTION, BILATERAL 2011 cervical Bilateral [address] Monica Mancilla KIDNEY SURGERY Right 1969 valve duct problems when younger KNEE CARTILAGE SURGERY Left 2017 MANDIBLE SURGERY [address] work done dr malina stahl jaw ORIF CLAVICLE Left 10/22/2019 Procedure: OPEN REDUCTION INTERNAL FIXATION LEFT CLAVICLE; Surgeon: Sameera Coreas MD; Location: Main OR; Service: Orthopedic PROSTATECTOMY 2010 had cancer SHOULDER SURGERY Right 2010 right shoulder replacement Family History Adopted: Yes Social History Tobacco Use Smoking status: Light Tobacco Smoker Types: Cigars Smokeless tobacco: Current User Tobacco comment: occasional cigar Substance Use Topics Alcohol use: No Alcohol/week: 0.0 standard drinks Drug use: No Outpatient Medications as of 10/04/2020 Medication Sig albuterol (Ventolin HFA) 90 mcg/actuation inhaler Inhale 2 (two) puffs every 6 (six) hours as needed for wheezing . blood pressure test kit-large Kit 1 kit by Miscellaneous route daily . DULoxetine (CYMBALTA) 60 MG capsule Take 1 (one) capsule (60 mg total) by mouth 2 (two) times a day. escitalopram oxalate (LEXAPRO) 20 MG tablet Take 1 (one) tablet (20 mg total) by mouth daily Take 0.5 tab daily for 3 days; then take 1 tab once daily . fluticasone propionate (FLONASE) 50 mcg/actuation nasal spray 2 (two) sprays by Each Nare route daily . gabapentin (NEURONTIN) 800 MG tablet TAKE 1 TABLET BY MOUTH THREE TIMES A DAY . ibuprofen (ADVIL,MOTRIN) 600 MG tablet Take 1 (one) tablet (600 mg total) by mouth every 6 (six) hours as needed for pain . lisinopriL (PRINIVIL,ZESTRIL) 20 MG tablet Take 1 (one) tablet (20 mg total) by mouth 2 (two) timesa day . methIMAzole (TAPAZOLE) 5 MG tablet Take 1 (one) tablet (5 mg total) by mouth daily . pramipexole (MIRAPEX) 1 MG tablet Take 1 (one) tablet (1 mg total) by mouth nightly . pseudoePHEDrine (Sudafed 12 Hour) 120 mg 12 hr tablet Take 1 (one) tablet (120 mg total) by mouth every 12 (twelve) hours . tolterodine (DETROL LA) 4 MG 24 hr capsule Allergies Allergen Reactions Amlodipine Other (See Comments) Patient state it make him unbalanced and dizzy Review of Systems: A review of systems was completed by Vazquez snyder and reviewed by Jess Milner CNP during the visit. Denies chest pain or shortness of breath. Patient states he is prescribed blood pressure medication and I only take it when I need it I did not take any medication today . Reccommended that he should follow-up with his primary care provider to discuss his medications and blood pressure further. Objective Exam: Vitals: 10/04/20 0957 BP: (!) 164/88 BP Location: Left arm Patient Position: Sitting Pulse: 66 Weight: 77.1 kg (170 lb) Height: 5' 8 General: no acute distress Appearance: Appears stated age Neurologic: Patient is alert and oriented x3 pleasant and cooperative. Mood and affect: Normal HEENT: normocephalic, attraumatic. Extraocular muscles grossly normal. Pulm: respiratory effort is normal Bilateral Knee - Physical Exam Gait: ambulates without an assistive device. Palpation: No tenderness to palpation, left knee. While palpating the medial joint line of the right knee patient denies tenderness over the joint line but states you electrocuted me when asked to explain patient states during palpation of the medial joint line electricity was felt lateral to the patella. Denies tenderness to palpation over the lateral joint line and lateral aspect to the knee, patient states I can feel you touching but it feels numb . No edema noted. No signs or symptoms of DVT, calves soft, negative for erythema or increased warmth. ROM Right and left knee full ROM without limitations. Muscle/Tendons Strength Flexion: 5/5 Bilaterally Extension: 5/5 Bilaterally Knee Test (Bilaterally) Anterior Drawer: Negative Posterior Drawer: Negative Reji: Negative Varus Stress: Negative Valgus Stress: Negative Thomas's: Negative Thessaly: Negative Patella Apprehension: Negative Bilateral Hip Internal and external rotation without limitation. Bilateral Ankle ROM without limitations. Distal Neurovascular Status Grossly intact. Skin Intact. Dry skin noted over bilateral anterior knees. Radiographs: Bilateral Knees Xrays from today's date 10/04/2020 were reviewed today in clinic and discussed with the patient. A formal read will be perfomed by radiology. Initial findings and impressions: No grossly acute osseous deformity. documented in this encounter* Sameera Coreas MD - 10/26/2020 6:18 PM EST Dictation on: 10/26/2020 6:21 PM by: SAMEERA COREAS [[id number]] documented in this encounter* Concepción Montes MD - 12/13/2020 9:42 AM EDT [facility] - Neurology [address] [facility] 2nd [place] [address] Nerve Conduction & EMG Report Patient: Vazquez Musa Sex: Male Date of : 1960 Visit Date: 12/13/2020 09:24 Age: 60 Years Examining MD: Concepción Montes MD Referred by: Dr. Coreas Temperature: 33.2 Current Height: 5 feet 9 inch Referred for: LUE numbness and R base of thumb pain. + neck pain. No DM. Plan: The study is design to evaluate for radiculopathy, plexopathy, entrapment neuropathy, median or ulnar neuropathy. Indication, risk, side effects, and alternatives were explained. Patient agreedto proceed. Patient was instructed to clean the puncture site with soap and water and put some ice pack for bruising. EMG Summary: The bilateral median motor nerve conduction study was normal. Bilateral median sensorynerve conduction study showed prolonged distal latency with reduced amplitude at the right side. The right ulnar motor and bilateral ulnar sensory nerve conduction studies were normal. The left ulnar motor nerve conduction study showed normal latency and amplitude with reduced conduction velocity across the elbow to 42.2 m/s. The bilateral radial sensory nerve conduction study were normal. Needle EMG of the muscles tested showed no abnormal spontaneous activity. Normal motor unit action potentials and recruitment patterns were seen. Impression: This is an abnormal EMG. There is electrodiagnostic evidence of a bilateral median nerve entrapment at the wrist with some sensory axonal damage on the right side. There is also electrodiagnostic evidence of a left ulnar nerve entrapment across the elbow without any axonal damage. Thereis NO electrodiagnostic evidence of bilateral cervical radiculopathy, brachial plexopathy or right ulnar neuropathy at this time. Concepción Montes MD Diplomate, ABPN, NBPAS Clinical Neurophysiology, Neurology, Vascular Neurology and Sleep Medicine [place], [place] [phone] Motor NCS Nerve / Sites Muscle Latency Amplitude Distance Velocity ms mV cm m/s R Median - APB Wrist APB 4.40 10.1 7 Elbow APB 8.94 10.6 23 50.6 L Median - APB Wrist APB 4.27 13.6 7 Elbow APB 8.58 13.2 22 51.0 R Ulnar - ADM Wrist ADM 3.02 10.8 6.5 B.Elbow ADM 7.13 11.1 22 53.6 A.Elbow ADM 9.08 10.9 10 51.1 L Ulnar - ADM Wrist ADM 3.38 12.1 6.5 B.Elbow ADM 7.54 12.1 22 52.8 A.Elbow ADM 10.15 11.6 11 42.2 Sensory NCS Nerve / Sites Peak Amp Amp.2-3 Distance Velocity d Lat.2 ms V V cm m/s ms R Radial - Snuff Forearm 2.79 21.1 14.5 10 49 L Radial - Snuff Forearm 2.46 9.1 23.6 10 52 R Median, Ulnar - Transcarpal comparison Median Palm 2.46 12.1 22.6 8 45 Ulnar Palm 2.19 16.5 1.9 8 56 0.27 L Median, Ulnar - Transcarpal comparison Median Palm 2.44 31.9 52.9 8 43 Ulnar Palm 2.13 17.0 2.3 8 60 0.31 EMG Summary Table Spontaneous Activity Amplitude Duration Recruitment Polyphasia Comment Muscle Ins Act Fib PSW Fasc - - - - - L. Cervical paraspinals Normal 0 0 0 Normal Normal Normal Normal Normal L. Deltoid Normal 0 0 0 Normal Normal Normal Normal Normal L. Triceps brachii Normal 0 0 0 Normal Normal Normal Normal Normal L. Biceps brachii Normal 0 0 0 Normal Normal Normal Normal Normal L. Pronator teres Normal 0 0 0 Normal Normal Normal Normal Normal L. Extensor digitorum communis Normal 0 0 0 Normal Normal Normal Normal Normal L. First dorsal interosseous Normal 0 0 0 Normal Normal Normal Normal Normal L. Abductor pollicis brevis Normal 0 0 0 Normal Normal Normal Normal Normal R. Cervical paraspinals Normal 0 0 0 Normal Normal Normal Normal Normal R. Deltoid Normal 0 0 0 Normal Normal Normal Normal Normal R. Triceps brachii Normal 0 0 0 Normal Normal Normal Normal Normal R. Biceps brachii Normal 0 0 0 Normal Normal Normal Normal Normal R. Pronator teres Normal 0 0 0 Normal Normal Normal Normal Normal R. Extensor digitorum communis Normal 0 0 0 Normal Normal Normal Normal Normal R. First dorsal interosseous Normal 0 0 0 Normal Normal Normal Normal Normal R. Abductor pollicis brevis Normal 0 0 0 Normal Normal Normal Normal Normal documented in this encounter* Concepción Montes MD - 12/13/2020 9:42 AM EDT [facility] - Neurology [address] [place] [address] Nerve Conduction & EMG Report Patient: Vazuqez Musa Sex: Male Date of : 1960 Visit Date: 12/13/2020 09:24 Age: 60 Years Examining MD: Concepción Montes MD Referred by: Dr. Coreas Temperature: 33.2 Current Height: 5 feet 9 inch Referred for: LUE numbness and R base of thumb pain. + neck pain. No DM. Plan: The study is design to evaluate for radiculopathy, plexopathy, entrapment neuropathy, median or ulnar neuropathy. Indication, risk, side effects, and alternatives were explained. Patient agreedto proceed. Patient was instructed to clean the puncture site with soap and water and put some ice pack for bruising. EMG Summary: The bilateral median motor nerve conduction study was normal. Bilateral median sensorynerve conduction study showed prolonged distal latency with reduced amplitude at the right side. The right ulnar motor and bilateral ulnar sensory nerve conduction studies were normal. The left ulnar motor nerve conduction study showed normal latency and amplitude with reduced conduction velocity across the elbow to 42.2 m/s. The bilateral radial sensory nerve conduction study were normal. Needle EMG of the muscles tested showed no abnormal spontaneous activity. Normal motor unit action potentials and recruitment patterns were seen. Impression: This is an abnormal EMG. There is electrodiagnostic evidence of a bilateral median nerve entrapment at the wrist with some sensory axonal damage on the right side. There is also electrodiagnostic evidence of a left ulnar nerve entrapment across the elbow without any axonal damage. Thereis NO electrodiagnostic evidence of bilateral cervical radiculopathy, brachial plexopathy or right ulnar neuropathy at this time. Concepción Montes MD Diplomate, ABPN, NBPAS Clinical Neurophysiology, Neurology, Vascular Neurology and Sleep Medicine [facility] [place] [phone] Motor NCS Nerve / Sites Muscle Latency Amplitude Distance Velocity ms mV cm m/s R Median - APB Wrist APB 4.40 10.1 7 Elbow APB 8.94 10.6 23 50.6 L Median - APB Wrist APB 4.27 13.6 7 Elbow APB 8.58 13.2 22 51.0 R Ulnar - ADM Wrist ADM 3.02 10.8 6.5 B.Elbow ADM 7.13 11.1 22 53.6 A.Elbow ADM 9.08 10.9 10 51.1 L Ulnar - ADM Wrist ADM 3.38 12.1 6.5 B.Elbow ADM 7.54 12.1 22 52.8 A.Elbow ADM 10.15 11.6 11 42.2 Sensory NCS Nerve / Sites Peak Amp Amp.2-3 Distance Velocity d Lat.2 ms V V cm m/s ms R Radial - Snuff Forearm 2.79 21.1 14.5 10 49 L Radial - Snuff Forearm 2.46 9.1 23.6 10 52 R Median, Ulnar - Transcarpal comparison Median Palm 2.46 12.1 22.6 8 45 Ulnar Palm 2.19 16.5 1.9 8 56 0.27 L Median, Ulnar - Transcarpal comparison Median Palm 2.44 31.9 52.9 8 43 Ulnar Palm 2.13 17.0 2.3 8 60 0.31 EMG Summary Table Spontaneous Activity Amplitude Duration Recruitment Polyphasia Comment Muscle Ins Act Fib PSW Fasc - - - - - L. Cervical paraspinals Normal 0 0 0 Normal Normal Normal Normal Normal L. Deltoid Normal 0 0 0 Normal Normal Normal Normal Normal L. Triceps brachii Normal 0 0 0 Normal Normal Normal Normal Normal L. Biceps brachii Normal 0 0 0 Normal Normal Normal Normal Normal L. Pronator teres Normal 0 0 0 Normal Normal Normal Normal Normal L. Extensor digitorum communis Normal 0 0 0 Normal Normal Normal Normal Normal L. First dorsal interosseous Normal 0 0 0 Normal Normal Normal Normal Normal L. Abductor pollicis brevis Normal 0 0 0 Normal Normal Normal Normal Normal R. Cervical paraspinals Normal 0 0 0 Normal Normal Normal Normal Normal R. Deltoid Normal 0 0 0 Normal Normal Normal Normal Normal R. Triceps brachii Normal 0 0 0 Normal Normal Normal Normal Normal R. Biceps brachii Normal 0 0 0 Normal Normal Normal Normal Normal R.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 assessment reviewed/completed Site: site marked by physician or proceduralist who is privileged and credentialed to perform procedure Patient identity confirmed: verified patient name and , verbally with patient and arm band Time out: Immediately prior to procedure a time out was called to verify the correct patient, procedure, equipment, support group manager and site/side marked as required. Physician or proceduralist has discussed critical or nonroutine steps, procedure duration and anticipated blood loss: Yes All team members agree to proceed: Yes Body area: head/neck Location details: scalp Laceration length: 5 cm Foreign bodies: no foreign bodies Tendon involvement: none Nerve involvement: none Vascular damage: no Patient sedated: no Repair type: simple Irrigation solution: saline Irrigation method: syringe Amount of cleaning: standard Wound exploration: wound explored through full range of motion and entire depth of wound probed and visualized no foreign body, no nerve damage and no vascular damage Debridement: none Degree of undermining: none Skin closure: danny Number of sutures: 4 Approximation: close Approximation difficulty: simple Dressing: antibiotic ointment Patient tolerance: patient tolerated the procedure well with no immediate complications Comments: The wound also cleaned with diluted Hibiclens. MDM Number of Diagnoses or Management Options Laceration of scalp, initial encounter Diagnosis management comments: Patient alert oriented, no acute distress, neuro exam normal. Options of head CT discussed, but skipped at this moment. Repair was done with 4 danny without complication, patient tolerated procedure well. Due to mary nail, patient updated tetanus, I will also prescribe Keflex for possible infection. I advised patient to return to the ER if patient symptoms change or other concerns. Patient will follow up with PCP or return to the ER, danny will be removed in 7 to 10 days. . Clinical Impression: 1. Laceration of scalp, initial encounter ED Disposition ED Disposition Condition Comment Discharge Stable Vazquez Musa discharged to home/self care in stable condition. Follow-up Information 1. Caren Reyes, CHARISSA. Specialties: Family Medicine, Nurse Practitioner Why: in 7-10 days for staple removal. [address] [place] [id number] Contact information for after-discharge care Follow-up information has not been specified. New Prescriptions cephALEXin (KEFLEX) 500 MG capsule Take 2 (two) capsules (1,000 mg total) by mouth 2 (two) times a day for 5 days . Jesu Rangel MD 11/09/20 1134 Pt states that he was doing drywall and a nail was hanging out and he caught his head on the nail. documented in this encounter ED Attestation Note - Leeanna Wadsworth MD - 01/15/2019 7:01 AM EDTOp Note - Sameera Coreas MD - 10/22/2019 3:53 PM ESTQuick Note - Indigo Rutherford RN - 10/22/2019 3:37 PM EST Miscellaneous Notes (unrecog nized section and content) ED Attestation: I did not see this patient. However, I was personally available for consult in the ED for this patient, if the Advanced Practice Provider (SOY) needed any assistance. The SOY evaluated the patient independently for a complaint of Shoulder Pain (pt c/o left shoulder pain from fall earlier this morning. pt states he was out fishing and fell down d/t groundhog hole in ground.), and completed their own examination, documentation, and discharge. documented in this encounter Dictation on: 10/22/2019 5:38 PM by: SAMEERA COREAS [[id number]] Discharge instructions reviewed with patient and family/friend, all questions answered, verbalized understanding.Including but not limited to signs and symptoms of infection; fever over 100, redness at the incision site, foul smelling drainage around the incisional site, and increased, unrelenting pain. When to call 911 instructions also reviewed and highlighted on instruction sheet. Patient states that they have the means to obtain supplies to care for self at home. Dressing to left clavical C/D/I. No drainage present Pt presented with dry blood in mouth. 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, subsequent encounter [S42.032K] Surgeon(s) and Role: * Sameera Coreas MD - Primary Anesthesiologist: Caren Ramos MD COIL WINDING MACHINES SET UP MECHANIC: Doron Hernandez CRNA Warehouser: Mary Mascorro RN; Licha Chavez RN Residential Door Unit Installer: Priya Pierre, TECHNOLOGIST Scrub Person: ST Jose A Handkerchief Maker: Luis Carlos Lemus Scrub Person Assist: Licha Palacio RN Operative findings: fx Intra and immediate post-operative complications: none Type of anesthesia used: General Estimated blood loss: 25 mL Estimated urine output: Refer to surgical log Specimen(s): * No specimens in log * Implant(s): Implant Name Type Inv. Item Serial No. Director Media Lot No. LRB No. Used Action PLATE 70MM LT SHORT DSTL THIRD CLAVICLE FRACTURE SS - [id number] PLATE 70MM LT SHORT DSTL THIRD CLAVICLE FRACTURE SS [employer]RE[employer] IN Left 1 Implanted SCREW 3.5 X 20MM SS LOW PROFILE TM JAMAAL - [id number] SCREW 3.5 X 20MM SS LOW PROFILE TM JAMAAL AR[employer]RE[employer] IN Left 2 Implanted SCREW 3.5 X 22MM SS LOW PROFILE TM JAMAAL - [id number] SCREW 3.5 X 22MM SS LOW PROFILE TM JAMAAL ARTHRE[employer] IN Left 1 Implanted SCREW 2.7 X 22MM NON-LOCK LOW PROFILE TM SS - [id number] SCREW 2.7 X 22MM NON- LOCK LOW PROFILE TM SS [employer]THREX IN Left 1 Implanted SCREW 2.7 X 18MM SS LOCK LOW PROFILE - [id number] SCREW 2.7 X 18MM SS LOCK LOW PROFILE [employer] IN Left 1 Implanted SCREW 2.7 X 22MM SS LOCK LOW PROFILE - [id number] SCREW 2.7 X 22MM SS LOCK LOW PROFILE [employer] IN Left 1 Implanted SCREW 2.7 X 24MM SS LOCK LOW PROFILE - [id number] SCREW 2.7 X 24MM SS LOCK LOW PROFILE [employer] IN Left 1 Implanted BUTTON DSTL CLAVICLE PLATE KNOTLESS TIGHTROPE - [id number] BUTTON DSTL CLAVICLE PLATE KNOTLESS TIGHTROPE ARTHREX IN [id number] Left 1 Implanted Drain(s): * No LDAs found * Wound(s): * No LDAs found * Sameera Coreas MD 10/22/2019 1:26 PM documented in this encounter Sameera Coreas MD - 10/22/2019 10:13 AM Sameera Matos MD - 10/11/2019 11:38 AM EST H&P Notes (unrecognized sect ion and content) INTERVAL HISTORY AND PHYSICAL Patient Name: Vazquez Musa Admit Date: MR #: [id number] : 1960 The H&P has been reviewed and the patient has been examined. I concur with the findings of the H&P. There are no significant changes. It is appropriate to proceed with the planned procedure. 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 At this point in time, the patient says that he is looking forward to the surgery. This has been going on for quite some period of time. He says that he just kept hoping that the fracture would in fact heal, but unfortunately it has continued to show persistent nonunion with significant hypermobility. The gentleman continues to have pain and discomfort in his left shoulder. The gentleman actually had his fracture 9 months ago and says it is just worsening. Today x-ray examination reveals a displaced lateral clavicle nonunion with a hypertrophic nonunion type appearance. PAST MEDICAL HISTORY Includes a history of a prostate cancer, thyroid disease, hypertension, and posttraumatic stress disorder. PAST SURGICAL HISTORY Bilateral cataract surgery. He has had cervical spine fusion in 2013. He has had right kidney surgery. He has had left knee arthroscopy. He has had mandibular surgery. He has had the prostatectomy for prostate cancer. He has had right shoulder replacement performed by myself. SOCIAL HISTORY He is single. He is a former smoker. Drinks very rarely. CURRENT MEDICATIONS Regimen includes albuterol, capsaicin cream, Cymbalta, Flonase, Neurontin, Prinivil, Tapazole, Prilosec, Ditropan, and Mirapex. ALLERGIES To amlodipine. REVIEW OF SYSTEMS Joint pain, arthralgias, and left shoulder pain. He has tenderness to the shoulder to palpation. PHYSICAL EXAMINATION General: This gentleman is awake, alert, and oriented x3. He ambulates without an assistive device. Chest: Clear. Cardiovascular: His heart has a regular rate and rhythm. At this time, I have noted a left-sided carotid bruit, a very faint right-sided carotid bruit. Extremities: Left shoulder neurologically intact with a full range of motion of the hand, wrist, elbow, and shoulder with 5/5 strength in the rotator cuff. Mobility of the lateral clavicle was noted with tenderness and prominence of the lateral clavicle. 5/5 strength in the rotator cuff. Skin: Intact without lesions HEENT: Normocephalic. IMPRESSION 1.Left shoulder lateral clavicle nonunion. 2.Carotid bruit, left side more noticeable than right. PLAN At this point in time, with a history of previous smoking, we are going to go and proceed forward with carotid ultrasounds. I am also going to get a preoperative EKG. This gentleman before I did his shoulder surgery in 2011, did have a workup but that has been 8 years ago. Overall, he has no chest pain. No shortness of breath. No symptoms. But we will do with his history of smoking, a preoperative EKG as well as the ultrasounds of the carotids. I have further discussed all of the treatment options with the patient as well as the patient was part of the entire decision-making process. I informed him we will be doing an open reduction internal fixation of left shoulder with the tight rope technique with open reduction internal fixation. He understands this. I did a narcotics review. He has no listed narcotics. documented in this encounter Sameera Marcos RN - 10/22/2019 9:07 AM EST Nursing Notes (unrecognized section and content) Pt is here alone today. Will call for a ride in post op. documented in this encounter Care Teams (unrecognized sec tion and content) Director Of Solutions Architecture Relationship Specialty Start Date End Date Caren Reyes CNP [address] [id number] PCP - General Family Medicine 11/03/17 Director Of Solutions Architecture Relationship Specialty Start Date End Date Caren Reyes CNP [address] [place] [address] PCP - General Family Medicine 11/03/17 Director Of Solutions Architecture Relationship Specialty Start Date End Date Caren Reyes CNP [address] [place] [address] PCP - General Family Medicine 11/03/17 Director Of Solutions Architecture Relationship Specialty Start Date End Date Carmineghazala Caren Isaacs, FISH PROCESSOR [address] [facility] [place] [address] PCP - General Family Medicine 11/03/17 Director Of Solutions Architecture Relationship Specialty Start Date End Date Carmineghazala Caren Isaacs, FISH PROCESSOR [address] [facility] [place] [address] PCP - General Family Medicine 11/03/17 Director Of Solutions Architecture Relationship Specialty Start Date End Date Carmineghazala Caren Isaacs, FISH PROCESSOR [address] [facility] [place] [address] PCP - General Family Medicine 11/03/17 Director Of Solutions Architecture Relationship Specialty Start Date End Date Carmineghazala Caren Isaacs, FISH PROCESSOR [address] [facility] [place] [address] PCP - General Family Medicine 11/03/17 Director Of Solutions Architecture Relationship Specialty Start Date End Date CarmineCaren vivar, FISH PROCESSOR [address] [facility] [place] [address] PCP - General Family Medicine 11/03/17 Director Of Solutions Architecture Relationship Specialty Start Date End Date CarmineCaren vivar, FISH PROCESSOR [address] [facility] [place] [address] PCP - General Family Medicine 11/03/17 Director Of Solutions Architecture Relationship Specialty Start Date End Date Caren Reyes, FISH PROCESSOR [address] [facility] [place] [address] PCP - General Family Medicine 11/03/17 Director Of Solutions Architecture Relationship Specialty Start Date End Date Caren Reyes FISH PROCESSOR [address] [facility] [place] [address] PCP - General Family Medicine 11/03/17 Director Of Solutions Architecture Relationship Specialty Start Date End Date Caren Reyes FISH PROCESSOR [address] [facility] [place] [address] PCP - General Family Medicine 11/03/17 Director Of Solutions Architecture Relationship Specialty Start Date End Date Caren Reyes CNP [address] [facility] [place] [address] PCP - General Family Medicine 11/03/17 Director Of Solutions Architecture Relationship Specialty Start Date End Date Caren Reyes CNP [address] [facility] [place] [address] PCP - General Family Medicine 11/03/17 Director Of Solutions Architecture Relationship Specialty Start Date End Date Caren Reyes CNP [address] [facility] [place] [address] PCP - General Family Medicine 11/03/17 Director Of Solutions Architecture Relationship Specialty Start Date End Date Caren Reyes CNP [address] [facility] [place] [address] PCP - General Family Medicine 11/03/17 Director Of Solutions Architecture Relationship Specialty Start Date End Date Caren Reyes CNP [address] [facility] [place] [address] PCP - General Family Medicine 11/03/17 Director Of Solutions Architecture Relationship Specialty Start Date End Date Caren Reyes CNP [address] [facility] [place] [address] PCP - General Family Medicine 11/03/17 Director Of Solutions Architecture Relationship Specialty Start Date End Date Caren Reyes CNP [address] [facility] [place] [address] PCP - General Family Medicine 11/03/17 Director Of Solutions Architecture Relationship Specialty Start Date End Date Caren Reyes CNP [address] [facility] [place] [address] PCP - General Family Medicine 11/03/17 Director Of Solutions Architecture Relationship Specialty Start Date End Date Caren Reyes CNP [address] [place] [address] PCP - General Family Medicine 11/03/17 Director Of Solutions Architecture Relationship Specialty Start Date End Date Caren Reyes CNP [address] [place] [address] PCP - General Family Medicine 11/03/17 Director Of Solutions Architecture Relationship Specialty Start Date End Date Caren Reyes CNP [address] [place] [address] PCP - General Family Medicine 11/03/17 Director Of Solutions Architecture Relationship Specialty Start Date End Date Caren Reyes CNP [address] [place] [address] PCP - General Family Medicine 11/03/17 Director Of Solutions Architecture Relationship Specialty Start Date End Date Caren Reyes CNP [address] [place] [address] PCP - General Family Medicine 11/03/17 Director Of Solutions Architecture Relationship Specialty Start Date End Date Caren Reyes CNP [address] [place] [address] PCP - General Family Medicine 11/03/17 Director Of Solutions Architecture Relationship Specialty Start Date End Date Caren Reyes CNP [address] [place] [address] PCP - General Family Medicine 11/03/17 Director Of Solutions Architecture Relationship Specialty Start Date End Date Ulysses Bedoya, CHARISSA [address] [place] [address] PCP - General Certified Nurse Practitioner 07/22/11 Director Of Solutions Architecture Relationship Specialty Start Date End Date Ulysses Bedoya, FISH PROCESSOR [address] [place] [address] PCP - General Certified Nurse Practitioner 07/22/11 Director Of Solutions Architecture Relationship Specialty Start Date End Date Caren Reyes CNP [address] [place] [address] PCP - General Family Medicine 11/03/17 Director Of Solutions Architecture Relationship Specialty Start Date End Date Caren Reyes CNP [address] [place] [address] PCP - General Family Medicine 11/03/17 Director Of Solutions Architecture Relationship Specialty Start Date End Date Caren Reyes CNP [address] [place] [address] PCP - General Family Medicine 11/03/17 Director Of Solutions Architecture Relationship Specialty Start Date End Date Caren Reyes CNP [address] [place] [address] PCP - General Family Medicine 11/03/17 Director Of Solutions Architecture Relationship Specialty Start Date End Date Caren Reyes CNP [address] [place] [address] PCP - General Family Medicine 11/03/17 Director Of Solutions Architecture Relationship Specialty Start Date End Date Ulysses Bedoya CNP [address] [place] [address] PCP - General Certified Nurse Practitioner 07/22/11 Director Of Solutions Architecture Relationship Specialty Start Date End Date Caren Reyes CNP [address] [place] [address] PCP - General Family Medicine 11/03/17 Director Of Solutions Architecture Relationship Specialty Start Date End Date Caren Reyes CNP [address] [place] [address] PCP - General Family Medicine 11/03/17 Director Of Solutions Architecture Relationship Specialty Start Date End Date Caren ReyesCHARISSA [address] [place] [address] PCP - General Family Medicine 11/03/17 Director Of Solutions Architecture Relationship Specialty Start Date End Date Caren ReyesCHARISSA [address] [place] [address] PCP - General Family Medicine 11/03/17 Director Of Solutions Architecture Relationship Specialty Start Date End Date Caren ReyesCHARISSA [address] [place] [address] PCP - General Family Medicine 11/03/17 Director Of Solutions Architecture Relationship Specialty Start Date End Date Caren ReyesCHARISSA [address] [place] [address] PCP - General Family Medicine 11/03/17 FOR RECORDS PERTAINING TO PATIENTS WHO ARE OR HAVE BEEN ENROLLED IN A CHEMICAL DEPENDENCY/SUBSTANCEABUSE PROGRAM, SOME INFORMATION MAY BE OMITTED. This clinical summary was aggregated from multiple sources. Caution should be exercised in using it in the provision of clinical care. This summary normalizes information from multiple sources, and as a consequence, information in this document may materially change the coding, format and clinical context of patient data. In addition, data may be omitted in some cases. CLINICAL DECISIONS SHOULD BE BASED ON THE PRIMARY CLINICAL RECORDS. [employer] [facility]. provides no warranty or guarantee of the accuracy or completeness of information in this document.
== END 2023-09-27 11:08 | disposition home or self-care (01) ==
LOC: ED 11:08
PROVIDERS: Emergency Provider Emergency Medicine; Visit Provider Emergency Medicine
DX: F41.9 Anxiety disorder, unspecified (principal); I10 Essential (primary) hypertension
CPT/HCPCS: 99282